=== PATIENT | female | born 1945 | race Caucasian/White ===

== ENCOUNTER 2023-02-02 06:17 | Inpatient (IN) | payer MEDICARE, OTHER ==
[~2023-02-02] VITALS: Ht 167.6 cm; Wt 78.9 kg
[2023-02-02 07:01] LABS: BASOPHILS % (AUTO) 0.4 % (0.0-2.0); EOSINOPHILS # (AUTO) 0.3 K/uL (0.0-0.7); EOSINOPHILS % (AUTO) 3.4 % (0.0-6.0); HEMATOCRIT 36 % (33-45); HEMOGLOBIN 11.8 g/dL (11.5-14.8); LYMPHOCYTES # (AUTO) 1.7 K/uL (0.8-4.8); LYMPHOCYTES % (AUTO) 18.8 % (20.0-44.0); MEAN CORPUSCULAR HEMOGLOBIN 33 PG (26.0-33.0); MEAN CORPUSCULAR HGB CONC 33 g/dl (31.0-36.0); MEAN CORPUSCULAR VOLUME 100 fL (82-100); MONOCYTES # (AUTO) 1.1 K/uL (0.1-1.30); MONOCYTES % (AUTO) 11.7 % (2.0-12.0); NEUTROPHILS # (AUTO) 5.9 K/uL (1.8-8.9); NEUTROPHILS % (AUTO) 65.7 % (43.0-81.0); PLATELET COUNT (AUTO) 188 K/uL (150-450); RED BLOOD CELL COUNT(AUTO) 3.58 MIL/uL (4.0-5.2); RED CELL DISTRIBUTION WIDTH 16.6 % (11.5-15.0)
[2023-02-02 07:15] LABS: CALCIUM, SERUM 10.3 mg/dL (8.5-10.1); CREATININE 1.3 mg/dL (0.6-1.3); POTASSIUM 5.6 mmol/L (3.5-5.1)
[2023-02-02 07:21] LABS: ALBUMIN 3.3 g/dL (3.4-5.0); BILIRUBIN,DIRECT 1.3 mg/dL (0.0-0.2); BILIRUBIN,TOTAL 3.2 mg/dL (0.2-1.0); TOTAL PROTEIN, SERUM 7.3 g/dL (6.4-8.2)
[2023-02-02 07:22] LABS: INR 1.16 (0.91-1.10); PARTIAL THROMBOPLASTIN TIME 24.9 SEC (24.3-34.3); PROTHROMBIN TIME 12.2 SECS (9.2-11.1)
[2023-02-02] MEDS ORDERED: SODIUM POLYSTYRENE SULFONATE 15 G/60 ML BOTTLE PO ONE (08:00)
[2023-02-02] MEDS ORDERED: LACTULOSE 10 G/15 ML UDC (PYXIS) PO ONE (08:00)
[2023-02-02] MEDS ORDERED: SODIUM POLYSTYRENE SULFONATE 15 G/60 ML BOTTLE ONE (08:05)
[2023-02-02] MEDS ORDERED: LACTULOSE 10 G/15 ML UDC (PYXIS) ONE (08:05)
[2023-02-02 08:42] LABS: THYROID STIMULATING HORMONE 2.257 uIU/mL (0.358-3.74)
[2023-02-02] MEDS ORDERED: LISI40TA13 PO (09:47)
[2023-02-02] MEDS ORDERED: FURO-145 PO (09:47)
[2023-02-02] MEDS ORDERED: DOXA2TAB2 PO (09:47)
[2023-02-02] MEDS ORDERED: CHOL100043 PO (09:47)
[2023-02-02] MEDS ORDERED: LACT10SO3 PO (09:47)
[2023-02-02] MEDS ORDERED: ESCI5TAB PO (09:47)
[2023-02-02] MEDS ORDERED: LORA-259 PO (09:47)
[2023-02-02] MEDS ORDERED: SPIR50TA5 PO (09:47)
[2023-02-02] MEDS ORDERED: METF-440 PO (09:47)
[2023-02-02] MEDS ORDERED: LIDO30AD10 TP (09:47)
[2023-02-02] MEDS ORDERED: METO25TA3 PO (09:47)
[2023-02-02] MEDS ORDERED: MAGN100T PO (09:47)
[2023-02-02] MEDS ORDERED: FAMO40TA7 PO (09:47)
[2023-02-02] MEDS ORDERED: INSU100V11 SQ (09:47)
[2023-02-02] MEDS ORDERED: LORA10TA7 PO (09:47)
[2023-02-02] MEDS ORDERED: BUDE10.22 IH (09:47)
[2023-02-02] MEDS ORDERED: MECL-159 PO (09:47)
[2023-02-02] MEDS ORDERED: FERR325T23 PO (09:47)
[2023-02-02] MEDS ORDERED: ACET-2605 PO (09:47)
[2023-02-02] MEDS ORDERED: HYDR25TA4 PO (09:47)
[2023-02-02] MEDS ORDERED: ALLO100T PO (09:47)
[2023-02-02] MEDS ORDERED: SUCR1TAB PO (09:47)
[2023-02-02] MEDS ORDERED: MECLIZINE HCL 25 MG TABLET GT PRN (10:30)
[2023-02-02] MEDS ORDERED: LORATADINE 10 MG TABLET GT PRN (10:30)
[2023-02-02] MEDS ORDERED: ALLOPURINOL 100 MG TABLET GT PRN (10:30)
[2023-02-02] MEDS ORDERED: LIDOCAINE 5% (PATCH) 1 EA PATCH TP PRN (10:30)
[2023-02-02] MEDS ORDERED: Z GUARD REMEDY 4 OZ OINT TP PRN (11:00)
[2023-02-02] MEDS ORDERED: ONDANSETRON HCL/PF 4 MG/2 ML VIAL IVP PRN (11:00)
[2023-02-02 12:35] LABS: APPEARANCE,URINE CLEAR (CLEAR); BILIRUBIN,URINE NEGATIVE (NEGATIVE); BLOOD, URINE NEGATIVE Ery/uL (NEGATIVE); COLOR,URINE YELLOW (YELLOW); KETONES,URINE NEGATIVE (NEGATIVE); LEUKOCYTE ESTERASE ,URINE NEGATIVE (NEGATIVE); NITRITE, URINE POSITIVE (NEGATIVE); PH,URINE 5.5 (5.0-8.0); PROTEIN,URINE NEGATIVE (NEGATIVE); UGLUCOSE NEGATIVE (NEGATIVE); UROBILINOGEN,URINE 0.2 EU/dL (0.2)
[2023-02-02 12:36] LABS: ADD URINE CULTURE YES; BACTERIA,URINE Few /HPF (None Seen); RBC,URINE 0-2 /HPF (0-2); SQUAMOUS EPITHELIAL CELL,UR Rare /HPF (None Seen); WBC,URINE 0-2 /HPF (0-3)
[2023-02-02] MEDS: SUCRALFATE 1 G TABLET GT SCH ×3 (13:00→21:00)
[2023-02-02] MEDS: IV NS 0.9% 1,000 ML IV SCH (15:04)
[2023-02-02 16:18] VITALS: BP 143/74; TEMP 98.1; O2SAT 99
[2023-02-02] MEDS: METFORMIN 500 MG TABLET GT SCH (16:36)
[2023-02-02 20:00] VITALS: BP 159/70; TEMP 98.4; O2SAT 98
[2023-02-02 22:00] VITALS: BP 159/70; TEMP 98.4; O2SAT 98
[2023-02-03] VITALS: BP 140/60; TEMP 98.8; O2SAT 98
[2023-02-03 00:12] VITALS: BP 140/60; TEMP 98.8; O2SAT 98
[2023-02-03 04:00] VITALS: BP 156/78; TEMP 98.4; O2SAT 98
[2023-02-03] MEDS: IV NS 0.9% 1,000 ML IV SCH ×2 (04:20→18:19)
[2023-02-03 06:50] LABS: BASOPHILS % (AUTO) 0.6 % (0.0-2.0); EOSINOPHILS # (AUTO) 0.3 K/uL (0.0-0.7); EOSINOPHILS % (AUTO) 3.6 % (0.0-6.0); HEMATOCRIT 34 % (33-45); HEMOGLOBIN 11.1 g/dL (11.5-14.8); LYMPHOCYTES % (AUTO) 12.3 % (20.0-44.0); MEAN CORPUSCULAR HEMOGLOBIN 33 PG (26.0-33.0); MEAN CORPUSCULAR HGB CONC 33 g/dl (31.0-36.0); MEAN CORPUSCULAR VOLUME 100 fL (82-100); MONOCYTES # (AUTO) 1.1 K/uL (0.1-1.30); MONOCYTES % (AUTO) 14.3 % (2.0-12.0); NEUTROPHILS # (AUTO) 5.4 K/uL (1.8-8.9); NEUTROPHILS % (AUTO) 69.2 % (43.0-81.0); PLATELET COUNT (AUTO) 153 K/uL (150-450); RED BLOOD CELL COUNT(AUTO) 3.35 MIL/uL (4.0-5.2); RED CELL DISTRIBUTION WIDTH 16.1 % (11.5-15.0); WHITE BLOOD COUNT (AUTO) 7.8 K/uL (4.3-11.0)
[2023-02-03 07:14] LABS: ALBUMIN 2.7 g/dL (3.4-5.0); BILIRUBIN,TOTAL 5.4 mg/dL (0.2-1.0); CALCIUM, SERUM 9.1 mg/dL (8.5-10.1); MAGNESIUM 1.5 mg/dL (1.8-2.4); POTASSIUM 4.5 mmol/L (3.5-5.1); TOTAL PROTEIN, SERUM 6.1 g/dL (6.4-8.2)
[2023-02-03 07:30] VITALS: BP 148/61; TEMP 98.2; O2SAT 99
[2023-02-03] MEDS: SUCRALFATE 1 G TABLET GT SCH ×4 (09:00→21:56)
[2023-02-03] MEDS: METOPROLOL SUCCINATE 25 MG TAB.SR.24H GT SCH (09:00)
[2023-02-03] MEDS: DOXAZOSIN MESYLATE (1 MG) 1 MG TABLET GT SCH (09:00)
[2023-02-03] MEDS: CHOLECALCIFEROL 1,000 UNIT TABLET (VIT D3) GT SCH (09:00)
[2023-02-03] MEDS ORDERED: Medication Not On Formulary EA (Lisinopril 40 MG) PO SCH (09:00)
[2023-02-03] MEDS ORDERED: PANTOPRAZOLE 40 MG VIAL IV SCH (09:00)
[2023-02-03] MEDS ORDERED: FUROSEMIDE 20 MG TABLET PO SCH (09:00)
[2023-02-03] MEDS ORDERED: SPIRONOLACTONE 50 MG PO SCH (09:00)
[2023-02-03] MEDS: FAMOTIDINE (20 MG) 20 MG TABLET GT SCH (09:00)
[2023-02-03] MEDS ORDERED: HYDROCHLOROTHIAZIDE 25 MG TABLET PO SCH (09:00)
[2023-02-03] MEDS: METFORMIN 500 MG TABLET GT SCH ×2 (09:00→17:48)
[2023-02-03] MEDS: FERROUS SULFATE (325 MG) 325 MG/TAB TABLET GT SCH (09:00)
[2023-02-03] MEDS: Magnesium 1GM/D5W 100ML PREMIX 100 ML IV SCH ×3 (09:44→13:24)
[2023-02-03 16:24] VITALS: BP 136/57; TEMP 98.1; O2SAT 99
[2023-02-03 20:52] VITALS: BP 134/60; TEMP 98.6; O2SAT 98
[2023-02-04 07:30] VITALS: BP 144/79; TEMP 98.1; O2SAT 99
[2023-02-04] MEDS: IV NS 0.9% 1,000 ML IV SCH (07:44)
[2023-02-04] MEDS: METFORMIN 500 MG TABLET GT SCH ×2 (08:48→17:07)
[2023-02-04] MEDS: CHOLECALCIFEROL 1,000 UNIT TABLET (VIT D3) GT SCH (08:49)
[2023-02-04] MEDS: FAMOTIDINE (20 MG) 20 MG TABLET GT SCH (08:49)
[2023-02-04] MEDS: SUCRALFATE 1 G TABLET GT SCH ×4 (08:49→20:13)
[2023-02-04] MEDS: DOXAZOSIN MESYLATE (1 MG) 1 MG TABLET GT SCH (08:49)
[2023-02-04] MEDS: METOPROLOL SUCCINATE 25 MG TAB.SR.24H GT SCH (08:50)
[2023-02-04] MEDS: FERROUS SULFATE (325 MG) 325 MG/TAB TABLET GT SCH (08:53)
[2023-02-04] MEDS: PANTOPRAZOLE 40 MG/PACK PACK GT SCH (10:30)
[2023-02-04 16:00] VITALS: BP 121/54; TEMP 99.1; O2SAT 98
[2023-02-04] MEDS: ACETAMINOPHEN 650 MG/20.3 ML UDC GT PRN (17:56)
[2023-02-04 20:00] VITALS: BP 95/56; TEMP 98.6; O2SAT 97
[2023-02-04] MEDS: IV NS 0.9% 1,000 ML IV PRN (22:01)
[2023-02-05 07:30] VITALS: BP 130/54; TEMP 97.9; O2SAT 99
[2023-02-05] MEDS: CHOLECALCIFEROL 1,000 UNIT TABLET (VIT D3) GT SCH (09:46)
[2023-02-05] MEDS: PANTOPRAZOLE 40 MG/PACK PACK GT SCH (09:46)
[2023-02-05] MEDS: SUCRALFATE 1 G TABLET GT SCH ×4 (09:46→20:15)
[2023-02-05] MEDS: METOPROLOL SUCCINATE 25 MG TAB.SR.24H GT SCH (09:47)
[2023-02-05] MEDS: FERROUS SULFATE (325 MG) 325 MG/TAB TABLET GT SCH (09:47)
[2023-02-05 09:48] LABS: BASOPHILS % (AUTO) 0.4 % (0.0-2.0); EOSINOPHILS # (AUTO) 0.3 K/uL (0.0-0.7); EOSINOPHILS % (AUTO) 4.3 % (0.0-6.0); HEMATOCRIT 34 % (33-45); HEMOGLOBIN 10.8 g/dL (11.5-14.8); LYMPHOCYTES # (AUTO) 0.8 K/uL (0.8-4.8); LYMPHOCYTES % (AUTO) 10.2 % (20.0-44.0); MEAN CORPUSCULAR HEMOGLOBIN 33 PG (26.0-33.0); MEAN CORPUSCULAR HGB CONC 32 g/dl (31.0-36.0); MEAN CORPUSCULAR VOLUME 103 fL (82-100); MONOCYTES % (AUTO) 12.8 % (2.0-12.0); NEUTROPHILS # (AUTO) 5.6 K/uL (1.8-8.9); NEUTROPHILS % (AUTO) 72.3 % (43.0-81.0); PLATELET COUNT (AUTO) 141 K/uL (150-450); RED BLOOD CELL COUNT(AUTO) 3.29 MIL/uL (4.0-5.2); RED CELL DISTRIBUTION WIDTH 16.1 % (11.5-15.0); WHITE BLOOD COUNT (AUTO) 7.7 K/uL (4.3-11.0)
[2023-02-05] MEDS: DOXAZOSIN MESYLATE (1 MG) 1 MG TABLET GT SCH (09:48)
[2023-02-05] MEDS: FAMOTIDINE (20 MG) 20 MG TABLET GT SCH (09:48)
[2023-02-05] MEDS: METFORMIN 500 MG TABLET GT SCH ×2 (09:48→17:23)
[2023-02-05 10:12] LABS: ALBUMIN 2.5 g/dL (3.4-5.0); BILIRUBIN,TOTAL 3.6 mg/dL (0.2-1.0); CALCIUM, SERUM 8.5 mg/dL (8.5-10.1); CREATININE 1.3 mg/dL (0.6-1.3); MAGNESIUM 1.7 mg/dL (1.8-2.4); PHOSPHORUS 2.3 mg/dL (2.5-4.9); POTASSIUM 4.5 mmol/L (3.5-5.1); TOTAL PROTEIN, SERUM 5.7 g/dL (6.4-8.2)
[2023-02-05 16:00] VITALS: BP 109/50; TEMP 98.2; O2SAT 98
[2023-02-05] MEDS ORDERED: NEUTRA PHOS 1 POWD.PACKET NG ONE (16:00)
[2023-02-05] MEDS: LACTULOSE 10 G/15 ML UDC (PYXIS) PO SCH (17:22)
[2023-02-05] MEDS ORDERED: DEXTROSE 50%-WATER 50 ML DISP.SYRIN IV PRN (18:00)
[2023-02-05] MEDS: GUAIFENESIN/D-METHORPHAN HB 5 ML UDC PO PRN (18:25)
[2023-02-05 20:20] VITALS: BP 112/53; TEMP 97.9; O2SAT 99
[2023-02-05] MEDS: INSULIN REGULAR, HUMAN 100 UNIT/ML 3 ML VIAL SQ PRN (21:31)
[2023-02-05] MEDS: BLOOD SUGAR DIAGNOSTIC 1 EACH STRIP IN SCH (21:32)
[2023-02-05] MEDS: IV NS 0.9% 1,000 ML IV PRN (22:10)
[2023-02-06] MEDS: INSULIN REGULAR, HUMAN 100 UNIT/ML 3 ML VIAL SQ PRN ×3 (06:35→23:21)
[2023-02-06] MEDS: BLOOD SUGAR DIAGNOSTIC 1 EACH STRIP IN SCH ×4 (06:35→22:48)
[2023-02-06] MEDS: FERROUS SULFATE (325 MG) 325 MG/TAB TABLET GT SCH (09:00)
[2023-02-06] MEDS: SULFAMETH/TRIMETH 800/160 MG 1 UDTAB TABLET PO SCH ×2 (09:00→22:48)
[2023-02-06] MEDS: PANTOPRAZOLE 40 MG/PACK PACK GT SCH (09:00)
[2023-02-06] MEDS: DOXAZOSIN MESYLATE (1 MG) 1 MG TABLET GT SCH (09:00)
[2023-02-06] MEDS: LACTULOSE 10 G/15 ML UDC (PYXIS) PO SCH ×3 (09:00→17:44)
[2023-02-06] MEDS: CHOLECALCIFEROL 1,000 UNIT TABLET (VIT D3) GT SCH (09:00)
[2023-02-06] MEDS: RIFAXIMIN 550 MG TABLET PO SCH ×2 (09:00→17:29)
[2023-02-06] MEDS: FAMOTIDINE (20 MG) 20 MG TABLET GT SCH (09:00)
[2023-02-06] MEDS: SUCRALFATE 1 G TABLET GT SCH ×4 (09:00→22:45)
[2023-02-06] MEDS: METOPROLOL SUCCINATE 25 MG TAB.SR.24H GT SCH (09:00)
[2023-02-06] MEDS: GUAIFENESIN/D-METHORPHAN HB 5 ML UDC PO PRN ×2 (11:45→17:29)
[2023-02-06] MEDS: IV NS 0.9% 1,000 ML IV PRN (14:42)
[2023-02-06 18:43] VITALS: BP 121/85; TEMP 98.6; O2SAT 90
[2023-02-06 19:00] VITALS: BP 115/66; TEMP 98.8; O2SAT 94
[2023-02-06 23:44] VITALS: O2SAT 96
[2023-02-06] MEDS: IPRATROPIUM NEB FS 0.5 MG/2.5 ML AMPUL.NEB NEB PRN (23:51)
[2023-02-06] MEDS: ALBUTEROL FS 2.5 MG/0.5 ML VIAL.NEB NEB PRN (23:51)
[2023-02-06 23:59] VITALS: O2SAT 97
[2023-02-07 06:52] LABS: BASOPHILS % (AUTO) 0.3 % (0.0-2.0); EOSINOPHILS # (AUTO) 0.2 K/uL (0.0-0.7); EOSINOPHILS % (AUTO) 1.3 % (0.0-6.0); HEMATOCRIT 30 % (33-45); HEMOGLOBIN 9.8 g/dL (11.5-14.8); LYMPHOCYTES # (AUTO) 0.8 K/uL (0.8-4.8); LYMPHOCYTES % (AUTO) 6.9 % (20.0-44.0); MEAN CORPUSCULAR HEMOGLOBIN 33 PG (26.0-33.0); MEAN CORPUSCULAR HGB CONC 33 g/dl (31.0-36.0); MEAN CORPUSCULAR VOLUME 100 fL (82-100); MONOCYTES # (AUTO) 1.4 K/uL (0.1-1.30); MONOCYTES % (AUTO) 11.8 % (2.0-12.0); NEUTROPHILS # (AUTO) 9.8 K/uL (1.8-8.9); NEUTROPHILS % (AUTO) 79.7 % (43.0-81.0); PLATELET COUNT (AUTO) 151 K/uL (150-450); RED BLOOD CELL COUNT(AUTO) 2.97 MIL/uL (4.0-5.2); RED CELL DISTRIBUTION WIDTH 15.4 % (11.5-15.0); WHITE BLOOD COUNT (AUTO) 12.3 K/uL (4.3-11.0)
[2023-02-07 07:14] LABS: CALCIUM, SERUM 8.3 mg/dL (8.5-10.1); CREATININE 1.2 mg/dL (0.6-1.3); POTASSIUM 4.9 mmol/L (3.5-5.1)
[2023-02-07 07:21] LABS: ALBUMIN 2.4 g/dL (3.4-5.0); BILIRUBIN,TOTAL 3.5 mg/dL (0.2-1.0); TOTAL PROTEIN, SERUM 5.6 g/dL (6.4-8.2)
[2023-02-07 08:00] VITALS: BP 144/56; TEMP 97.3; O2SAT 99
[2023-02-07] MEDS: BLOOD SUGAR DIAGNOSTIC 1 EACH STRIP IN SCH ×4 (08:36→22:03)
[2023-02-07] MEDS: LACTULOSE 10 G/15 ML UDC (PYXIS) PO SCH ×2 (09:00→16:30)
[2023-02-07] MEDS: SULFAMETH/TRIMETH 800/160 MG 1 UDTAB TABLET PO SCH ×2 (09:01→21:28)
[2023-02-07] MEDS: FERROUS SULFATE (325 MG) 325 MG/TAB TABLET GT SCH (09:01)
[2023-02-07] MEDS: SUCRALFATE 1 G TABLET GT SCH ×4 (09:01→21:28)
[2023-02-07] MEDS: CHOLECALCIFEROL 1,000 UNIT TABLET (VIT D3) GT SCH (09:01)
[2023-02-07] MEDS: PANTOPRAZOLE 40 MG/PACK PACK GT SCH (09:02)
[2023-02-07] MEDS: DOXAZOSIN MESYLATE (1 MG) 1 MG TABLET GT SCH (09:02)
[2023-02-07] MEDS: RIFAXIMIN 550 MG TABLET PO SCH ×2 (09:02→16:30)
[2023-02-07] MEDS: FAMOTIDINE (20 MG) 20 MG TABLET GT SCH (09:03)
[2023-02-07] MEDS: METOPROLOL SUCCINATE 25 MG TAB.SR.24H GT SCH (09:03)
[2023-02-07] MEDS: INSULIN REGULAR, HUMAN 100 UNIT/ML 3 ML VIAL SQ PRN ×4 (09:08→21:49)
[2023-02-07] MEDS ORDERED: LEVOFLOXACIN (250MG) 250 MG TABLET PO SCH (12:00)
[2023-02-07] MEDS ORDERED: FUROSEMIDE 40 MG/4 ML VIAL IV SCH (15:30)
[2023-02-07 16:00] VITALS: BP 116/58; TEMP 97.9; O2SAT 97
[2023-02-07] MEDS ORDERED: HYDROCODONE/APAP 5/325MG TABLET PO PRN (16:30)
[2023-02-07] MEDS: ACETAMINOPHEN 650 MG/20.3 ML UDC GT PRN (16:30)
[2023-02-07 18:10] LABS: BASOPHILS % (AUTO) 0.3 % (0.0-2.0); EOSINOPHILS # (AUTO) 0.2 K/uL (0.0-0.7); EOSINOPHILS % (AUTO) 1.7 % (0.0-6.0); HEMATOCRIT 29 % (33-45); HEMOGLOBIN 9.6 g/dL (11.5-14.8); LYMPHOCYTES # (AUTO) 0.8 K/uL (0.8-4.8); LYMPHOCYTES % (AUTO) 7.1 % (20.0-44.0); MEAN CORPUSCULAR HEMOGLOBIN 33 PG (26.0-33.0); MEAN CORPUSCULAR HGB CONC 33 g/dl (31.0-36.0); MEAN CORPUSCULAR VOLUME 99 fL (82-100); MONOCYTES # (AUTO) 1.9 K/uL (0.1-1.30); MONOCYTES % (AUTO) 15.5 % (2.0-12.0); NEUTROPHILS % (AUTO) 75.4 % (43.0-81.0); PLATELET COUNT (AUTO) 137 K/uL (150-450); RED BLOOD CELL COUNT(AUTO) 2.97 MIL/uL (4.0-5.2); RED CELL DISTRIBUTION WIDTH 15.7 % (11.5-15.0)
[2023-02-07 18:53] LABS: ALANINE AMINOTRANSFERASE 25 U/L (12-78); ALBUMIN 2.4 g/dL (3.4-5.0); ALKALINE PHOSPHATASE 55 U/L (46-116); ASPARTATE AMINOTRANSFERASE 32 U/L (15-37); BILIRUBIN,TOTAL 2.9 mg/dL (0.2-1.0); CALCIUM, SERUM 8.4 mg/dL (8.5-10.1); CARBON DIOXIDE 15 mmol/L (21-32); CHLORIDE 106 mmol/L (98-107); CREATININE 1.5 mg/dL (0.6-1.3); GLUCOSE 209 mg/dL (74-106); POTASSIUM 4.6 mmol/L (3.5-5.1); SODIUM SERUM 131 mmol/L (136-145); TOTAL PROTEIN, SERUM 5.6 g/dL (6.4-8.2); UREA NITROGEN, BLOOD 23 mg/dL (7-18)
[2023-02-07 20:00] VITALS: BP 112/56; TEMP 98.8; O2SAT 97
[2023-02-08 02:31] LABS: ANISOCYTOSIS 1+; BASOPHILS % (MANUAL) 0 % (0.0-2.0); EOSINOPHILS % (MANUAL) 0 % (0-4); LYMPHOCYTES % (MANUAL) 9 % (16-48); MONOCYTES % (MANUAL) 12 % (0-11.0); NEUTROPHILS % (MANUAL) 78 (42-76); PLATELET ESTIMATE ADEQUATE
[2023-02-08] MEDS: IV NS 0.9% 1,000 ML IV PRN (05:33)
[2023-02-08] MEDS: IPRATROPIUM NEB FS 0.5 MG/2.5 ML AMPUL.NEB NEB PRN (05:58)
[2023-02-08 05:59] VITALS: O2SAT 98
[2023-02-08] MEDS: ALBUTEROL FS 2.5 MG/0.5 ML VIAL.NEB NEB PRN (05:59)
[2023-02-08 06:13] VITALS: O2SAT 100
[2023-02-08] MEDS: INSULIN REGULAR, HUMAN 100 UNIT/ML 3 ML VIAL SQ PRN ×4 (06:56→21:31)
[2023-02-08] MEDS: BLOOD SUGAR DIAGNOSTIC 1 EACH STRIP IN SCH ×4 (06:57→21:26)
[2023-02-08 07:30] VITALS: BP 118/66; TEMP 98.1; O2SAT 100
[2023-02-08 09:16] LABS: BASOPHILS # (AUTO) 0.1 K/uL (0.0-0.2); BASOPHILS % (AUTO) 0.6 % (0.0-2.0); EOSINOPHILS # (AUTO) 0.3 K/uL (0.0-0.7); EOSINOPHILS % (AUTO) 3.2 % (0.0-6.0); HEMATOCRIT 32 % (33-45); HEMOGLOBIN 10.6 g/dL (11.5-14.8); LYMPHOCYTES # (AUTO) 1.2 K/uL (0.8-4.8); LYMPHOCYTES % (AUTO) 11.8 % (20.0-44.0); MEAN CORPUSCULAR HEMOGLOBIN 34 PG (26.0-33.0); MEAN CORPUSCULAR HGB CONC 33 g/dl (31.0-36.0); MEAN CORPUSCULAR VOLUME 101 fL (82-100); MONOCYTES # (AUTO) 1.5 K/uL (0.1-1.30); MONOCYTES % (AUTO) 14.5 % (2.0-12.0); NEUTROPHILS % (AUTO) 69.9 % (43.0-81.0); PLATELET COUNT (AUTO) 143 K/uL (150-450); RED BLOOD CELL COUNT(AUTO) 3.18 MIL/uL (4.0-5.2); RED CELL DISTRIBUTION WIDTH 16.1 % (11.5-15.0)
[2023-02-08 09:19] LABS: SERUM AMMONIA 12 umol/L (11-32)
[2023-02-08] MEDS: PANTOPRAZOLE 40 MG/PACK PACK GT SCH (09:29)
[2023-02-08] MEDS: SULFAMETH/TRIMETH 800/160 MG 1 UDTAB TABLET PO SCH ×2 (09:29→21:16)
[2023-02-08] MEDS: FAMOTIDINE (20 MG) 20 MG TABLET GT SCH (09:29)
[2023-02-08] MEDS: CHOLECALCIFEROL 1,000 UNIT TABLET (VIT D3) GT SCH (09:30)
[2023-02-08] MEDS: METOPROLOL SUCCINATE 25 MG TAB.SR.24H GT SCH (09:30)
[2023-02-08] MEDS: DOXAZOSIN MESYLATE (1 MG) 1 MG TABLET GT SCH (09:30)
[2023-02-08] MEDS: FERROUS SULFATE (325 MG) 325 MG/TAB TABLET GT SCH (09:31)
[2023-02-08] MEDS: RIFAXIMIN 550 MG TABLET PO SCH ×2 (09:31→16:43)
[2023-02-08] MEDS: SUCRALFATE 1 G TABLET GT SCH ×4 (09:31→21:15)
[2023-02-08 09:41] LABS: ALANINE AMINOTRANSFERASE 24 U/L (12-78); ALBUMIN 2.4 g/dL (3.4-5.0); ALKALINE PHOSPHATASE 51 U/L (46-116); ASPARTATE AMINOTRANSFERASE 33 U/L (15-37); CALCIUM, SERUM 8.3 mg/dL (8.5-10.1); CARBON DIOXIDE 16 mmol/L (21-32); CHLORIDE 106 mmol/L (98-107); CREATININE 1.4 mg/dL (0.6-1.3); GLUCOSE 174 mg/dL (74-106); POTASSIUM 4.6 mmol/L (3.5-5.1); SODIUM SERUM 132 mmol/L (136-145); TOTAL PROTEIN, SERUM 5.8 g/dL (6.4-8.2); UREA NITROGEN, BLOOD 23 mg/dL (7-18)
[2023-02-08] MEDS: LACTULOSE 10 G/15 ML UDC (PYXIS) PO SCH ×2 (10:13→16:42)
[2023-02-08] MEDS: FUROSEMIDE 40 MG/4 ML VIAL IV SCH (11:13)
[2023-02-08 16:07] VITALS: BP 112/52; TEMP 97.9; O2SAT 100
[2023-02-08 16:36] LABS: APPEARANCE,SPUN,BODY FLUID CLEAR (CLEAR); TOTAL VOLUME,BODY FLUID 1000 mL; WBC, BODY FLUID 496 /cu. mm. (0-200)
[2023-02-08 17:21] LABS: MACROPHAGES, BODY FLUID 13; MONOCYTES,BODY FLUID 5 %; POLYNUCLEAR, BODY FLUID 23 % (0-25)
[2023-02-08 19:30] VITALS: BP 118/60; TEMP 98.2; O2SAT 99
[2023-02-09] MEDS: BLOOD SUGAR DIAGNOSTIC 1 EACH STRIP IN SCH ×4 (06:49→22:38)
[2023-02-09] MEDS: INSULIN REGULAR, HUMAN 100 UNIT/ML 3 ML VIAL SQ PRN ×4 (07:00→23:13)
[2023-02-09 07:07] LABS: SERUM AMMONIA 40 umol/L (11-32)
[2023-02-09 08:10] LABS: ALANINE AMINOTRANSFERASE 20 U/L (12-78); ALKALINE PHOSPHATASE 44 U/L (46-116); ASPARTATE AMINOTRANSFERASE 34 U/L (15-37); BILIRUBIN,TOTAL 1.6 mg/dL (0.2-1.0); CALCIUM, SERUM 8.2 mg/dL (8.5-10.1); CARBON DIOXIDE 17 mmol/L (21-32); CHLORIDE 100 mmol/L (98-107); CREATININE 1.4 mg/dL (0.6-1.3); GLUCOSE 175 mg/dL (74-106); POTASSIUM 4.7 mmol/L (3.5-5.1); SODIUM SERUM 125 mmol/L (136-145); UREA NITROGEN, BLOOD 21 mg/dL (7-18)
[2023-02-09] MEDS: LACTULOSE 10 G/15 ML UDC (PYXIS) PO SCH ×2 (08:12→16:34)
[2023-02-09] MEDS: SULFAMETH/TRIMETH 800/160 MG 1 UDTAB TABLET PO SCH ×2 (08:12→22:38)
[2023-02-09] MEDS: PANTOPRAZOLE 40 MG/PACK PACK GT SCH (08:12)
[2023-02-09] MEDS: SUCRALFATE 1 G TABLET GT SCH ×4 (08:12→22:37)
[2023-02-09] MEDS: FAMOTIDINE (20 MG) 20 MG TABLET GT SCH (08:13)
[2023-02-09] MEDS: FERROUS SULFATE (325 MG) 325 MG/TAB TABLET GT SCH (08:13)
[2023-02-09] MEDS: CHOLECALCIFEROL 1,000 UNIT TABLET (VIT D3) GT SCH (08:13)
[2023-02-09] MEDS: RIFAXIMIN 550 MG TABLET PO SCH ×2 (08:13→16:34)
[2023-02-09] MEDS: METOPROLOL SUCCINATE 25 MG TAB.SR.24H GT SCH (08:18)
[2023-02-09] MEDS: DOXAZOSIN MESYLATE (1 MG) 1 MG TABLET GT SCH (08:19)
[2023-02-09] MEDS: FUROSEMIDE 40 MG/4 ML VIAL IV SCH (08:19)
[2023-02-09 08:30] VITALS: BP 120/50; TEMP 97.7; O2SAT 99
[2023-02-09] MEDS: ALBUMIN 25% 25 GM in PREMIX 1 EA IV SCH ×2 (10:47→17:22)
[2023-02-09 11:25] LABS: BASOPHILS # (AUTO) 0.1 K/uL (0.0-0.2); BASOPHILS % (AUTO) 0.9 % (0.0-2.0); EOSINOPHILS # (AUTO) 0.3 K/uL (0.0-0.7); HEMATOCRIT 29 % (33-45); HEMOGLOBIN 9.9 g/dL (11.5-14.8); LYMPHOCYTES # (AUTO) 0.7 K/uL (0.8-4.8); LYMPHOCYTES % (AUTO) 10.2 % (20.0-44.0); MEAN CORPUSCULAR HEMOGLOBIN 33 PG (26.0-33.0); MEAN CORPUSCULAR HGB CONC 34 g/dl (31.0-36.0); MEAN CORPUSCULAR VOLUME 98 fL (82-100); MONOCYTES # (AUTO) 0.9 K/uL (0.1-1.30); MONOCYTES % (AUTO) 12.9 % (2.0-12.0); NEUTROPHILS # (AUTO) 5.1 K/uL (1.8-8.9); PLATELET COUNT (AUTO) 131 K/uL (150-450); RED BLOOD CELL COUNT(AUTO) 2.99 MIL/uL (4.0-5.2); RED CELL DISTRIBUTION WIDTH 15.6 % (11.5-15.0); WHITE BLOOD COUNT (AUTO) 7.1 K/uL (4.3-11.0)
[2023-02-09 11:36] LABS: ALANINE AMINOTRANSFERASE 20 U/L (12-78); ALKALINE PHOSPHATASE 48 U/L (46-116); ASPARTATE AMINOTRANSFERASE 28 U/L (15-37); BILIRUBIN,TOTAL 1.7 mg/dL (0.2-1.0); CARBON DIOXIDE 17 mmol/L (21-32); CHLORIDE 100 mmol/L (98-107); CREATININE 1.6 mg/dL (0.6-1.3); GLUCOSE 363 mg/dL (74-106); POTASSIUM 4.2 mmol/L (3.5-5.1); SODIUM SERUM 124 mmol/L (136-145); TOTAL PROTEIN, SERUM 4.9 g/dL (6.4-8.2); UREA NITROGEN, BLOOD 22 mg/dL (7-18)
[2023-02-09 16:00] VITALS: BP 113/97; TEMP 97.6; O2SAT 100
[2023-02-09 18:43] LABS: CALCIUM, SERUM 8.3 mg/dL (8.5-10.1); CARBON DIOXIDE 17 mmol/L (21-32); CHLORIDE 101 mmol/L (98-107); CREATININE 1.6 mg/dL (0.6-1.3); GLUCOSE 253 mg/dL (74-106); POTASSIUM 4.5 mmol/L (3.5-5.1); SODIUM SERUM 126 mmol/L (136-145); UREA NITROGEN, BLOOD 23 mg/dL (7-18)
[2023-02-09 19:10] LABS: APPEARANCE,URINE CLEAR (CLEAR); BILIRUBIN,URINE NEGATIVE (NEGATIVE); BLOOD, URINE NEGATIVE Ery/uL (NEGATIVE); COLOR,URINE YELLOW (YELLOW); KETONES,URINE NEGATIVE (NEGATIVE); LEUKOCYTE ESTERASE ,URINE NEGATIVE (NEGATIVE); NITRITE, URINE NEGATIVE (NEGATIVE); PH,URINE 5.5 (5.0-8.0); PROTEIN,URINE NEGATIVE (NEGATIVE); UGLUCOSE TRACE mg/dL (NEGATIVE); UROBILINOGEN,URINE 0.2 EU/dL (0.2)
[2023-02-09 20:00] VITALS: BP 104/47; TEMP 97.9; O2SAT 97
[2023-02-09 22:20] LABS: EOSINOPHIL,URINE None Seen
[2023-02-10] MEDS: ALBUMIN 25% 25 GM in PREMIX 1 EA IV SCH ×3 (03:25→21:41)
[2023-02-10 03:42] LABS: URINE TOTAL PROTEIN 8.4 mg/dL (0-11.9)
[2023-02-10] MEDS: BLOOD SUGAR DIAGNOSTIC 1 EACH STRIP IN SCH ×4 (07:45→21:32)
[2023-02-10] MEDS: INSULIN REGULAR, HUMAN 100 UNIT/ML 3 ML VIAL SQ PRN ×4 (07:46→21:56)
[2023-02-10 08:00] VITALS: BP 110/45; TEMP 98.1; O2SAT 100
[2023-02-10] MEDS: LACTULOSE 10 G/15 ML UDC (PYXIS) PO SCH ×2 (09:33→17:10)
[2023-02-10] MEDS: DOXAZOSIN MESYLATE (1 MG) 1 MG TABLET GT SCH (09:33)
[2023-02-10] MEDS: CHOLECALCIFEROL 1,000 UNIT TABLET (VIT D3) GT SCH (09:33)
[2023-02-10] MEDS: SULFAMETH/TRIMETH 800/160 MG 1 UDTAB TABLET PO SCH ×2 (09:33→21:32)
[2023-02-10] MEDS: RIFAXIMIN 550 MG TABLET PO SCH ×2 (09:34→17:10)
[2023-02-10] MEDS: SUCRALFATE 1 G TABLET GT SCH ×4 (09:34→21:32)
[2023-02-10] MEDS: PANTOPRAZOLE 40 MG/PACK PACK GT SCH (09:34)
[2023-02-10] MEDS: FAMOTIDINE (20 MG) 20 MG TABLET GT SCH (09:34)
[2023-02-10] MEDS: FERROUS SULFATE (325 MG) 325 MG/TAB TABLET GT SCH (09:35)
[2023-02-10] MEDS: METOPROLOL SUCCINATE 25 MG TAB.SR.24H GT SCH (09:35)
[2023-02-10 11:09] LABS: SERUM AMMONIA 49 umol/L (11-32)
[2023-02-10 11:13] LABS: ALANINE AMINOTRANSFERASE 22 U/L (12-78); ALKALINE PHOSPHATASE 53 U/L (46-116); ASPARTATE AMINOTRANSFERASE 29 U/L (15-37); BILIRUBIN,TOTAL 1.6 mg/dL (0.2-1.0); CALCIUM, SERUM 8.2 mg/dL (8.5-10.1); CARBON DIOXIDE 13 mmol/L (21-32); CHLORIDE 101 mmol/L (98-107); CREATININE 1.5 mg/dL (0.6-1.3); GLUCOSE 262 mg/dL (74-106); POTASSIUM 4.7 mmol/L (3.5-5.1); SODIUM SERUM 122 mmol/L (136-145); TOTAL PROTEIN, SERUM 5.3 g/dL (6.4-8.2); UREA NITROGEN, BLOOD 24 mg/dL (7-18)
[2023-02-10 11:21] LABS: BASOPHILS % (AUTO) 0.4 % (0.0-2.0); EOSINOPHILS # (AUTO) 0.2 K/uL (0.0-0.7); EOSINOPHILS % (AUTO) 4.3 % (0.0-6.0); HEMATOCRIT 29 % (33-45); HEMOGLOBIN 9.2 g/dL (11.5-14.8); LYMPHOCYTES # (AUTO) 0.5 K/uL (0.8-4.8); LYMPHOCYTES % (AUTO) 12.5 % (20.0-44.0); MEAN CORPUSCULAR HEMOGLOBIN 35 PG (26.0-33.0); MEAN CORPUSCULAR HGB CONC 32 g/dl (31.0-36.0); MEAN CORPUSCULAR VOLUME 109 fL (82-100); MONOCYTES # (AUTO) 0.6 K/uL (0.1-1.30); MONOCYTES % (AUTO) 13.4 % (2.0-12.0); NEUTROPHILS # (AUTO) 2.9 K/uL (1.8-8.9); NEUTROPHILS % (AUTO) 69.4 % (43.0-81.0); RED BLOOD CELL COUNT(AUTO) 2.63 MIL/uL (4.0-5.2); RED CELL DISTRIBUTION WIDTH 17.4 % (11.5-15.0); WHITE BLOOD COUNT (AUTO) 4.2 K/uL (4.3-11.0)
[2023-02-10 11:33] LABS: PLATELET COUNT (AUTO) 30 K/uL (150-450)
[2023-02-10] MEDS ORDERED: ALBUTEROL FS 2.5 MG/0.5 ML VIAL.NEB NEB PRN (13:00)
[2023-02-10 16:00] VITALS: BP 117/45; TEMP 99; O2SAT 100
[2023-02-10 17:10] LABS: EOSINOPHILS % (MANUAL) 3 % (0-4); LYMPHOCYTES % (MANUAL) 12 % (16-48); MONOCYTES % (MANUAL) 22 % (0-11.0); NEUTROPHILS % (MANUAL) 63 (42-76); PLATELET ESTIMATE DECREASED
[2023-02-10 17:17] LABS: ALBUMIN 2.6 g/dL (3.4-5.0)
[2023-02-10] MEDS ORDERED: IPRATROPIUM/ALBUTEROL INHALER IH SCH (18:00)
[2023-02-10 19:34] VITALS: O2SAT 97
[2023-02-10] MEDS: IPRATROPIUM NEB FS 0.5 MG/2.5 ML AMPUL.NEB NEB SCH (19:34)
[2023-02-10] MEDS: ALBUTEROL FS 2.5 MG/0.5 ML VIAL.NEB NEB SCH (19:34)
[2023-02-10 19:44] VITALS: O2SAT 100
[2023-02-10 20:00] VITALS: BP 108/47; TEMP 98.1; O2SAT 100
[2023-02-11] VITALS (11 sets, daily range): BP systolic 99–115; BP diastolic 45–56; TEMP 98.1–98.8; O2SAT 96–100
[2023-02-11] MEDS: ALBUTEROL FS 2.5 MG/0.5 ML VIAL.NEB NEB SCH ×4 (02:25→19:45)
[2023-02-11] MEDS: IPRATROPIUM NEB FS 0.5 MG/2.5 ML AMPUL.NEB NEB SCH ×4 (02:25→19:45)
[2023-02-11] MEDS: ALBUMIN 25% 25 GM in PREMIX 1 EA IV SCH (06:12)
[2023-02-11] MEDS: INSULIN REGULAR, HUMAN 100 UNIT/ML 3 ML VIAL SQ PRN ×4 (06:50→22:17)
[2023-02-11] MEDS: BLOOD SUGAR DIAGNOSTIC 1 EACH STRIP IN SCH ×4 (06:50→22:14)
[2023-02-11 07:21] LABS: BASOPHILS % (AUTO) 0.5 % (0.0-2.0); EOSINOPHILS # (AUTO) 0.2 K/uL (0.0-0.7); EOSINOPHILS % (AUTO) 3.6 % (0.0-6.0); HEMATOCRIT 25 % (33-45); HEMOGLOBIN 8.3 g/dL (11.5-14.8); LYMPHOCYTES # (AUTO) 0.8 K/uL (0.8-4.8); MEAN CORPUSCULAR HEMOGLOBIN 33 PG (26.0-33.0); MEAN CORPUSCULAR HGB CONC 34 g/dl (31.0-36.0); MEAN CORPUSCULAR VOLUME 99 fL (82-100); MONOCYTES # (AUTO) 1.2 K/uL (0.1-1.30); MONOCYTES % (AUTO) 16.8 % (2.0-12.0); NEUTROPHILS # (AUTO) 4.6 K/uL (1.8-8.9); NEUTROPHILS % (AUTO) 67.1 % (43.0-81.0); PLATELET COUNT (AUTO) 117 K/uL (150-450); RED CELL DISTRIBUTION WIDTH 15.5 % (11.5-15.0); WHITE BLOOD COUNT (AUTO) 6.9 K/uL (4.3-11.0)
[2023-02-11 07:29] LABS: SERUM AMMONIA 53 umol/L (11-32)
[2023-02-11 07:33] LABS: ALANINE AMINOTRANSFERASE 14 U/L (12-78); ALBUMIN 3.1 g/dL (3.4-5.0); ALKALINE PHOSPHATASE 44 U/L (46-116); ASPARTATE AMINOTRANSFERASE 26 U/L (15-37); BILIRUBIN,TOTAL 1.8 mg/dL (0.2-1.0); CALCIUM, SERUM 8.4 mg/dL (8.5-10.1); CARBON DIOXIDE 17 mmol/L (21-32); CHLORIDE 101 mmol/L (98-107); CREATININE 1.7 mg/dL (0.6-1.3); GLUCOSE 150 mg/dL (74-106); POTASSIUM 4.3 mmol/L (3.5-5.1); SODIUM SERUM 127 mmol/L (136-145); TOTAL PROTEIN, SERUM 5.2 g/dL (6.4-8.2); UREA NITROGEN, BLOOD 27 mg/dL (7-18)
[2023-02-11 09:26] LABS: ABG OXYGEN SATURATION 97.6 % (92.0-98.5); ABG PH 7.397 (7.350-7.450); ABG PO2 108.5 mmHg (75.0-100.0); ABG TOTAL HEMOGLOBIN 9.7 G/dL (12.0-16.0); AaDO2 60.5 mmHg; COHb 0.3 % (0.5-1.5); MetHb 0.2 % (0.0-1.5); O2Hb 97.1 % (94.0-97.0); SITE, ABG Right Radial; VENT MODE, BG N/C @ 28 FiO2
[2023-02-11] MEDS: FAMOTIDINE (20 MG) 20 MG TABLET GT SCH (09:33)
[2023-02-11] MEDS: PANTOPRAZOLE 40 MG/PACK PACK GT SCH (09:33)
[2023-02-11] MEDS: LACTULOSE 10 G/15 ML UDC (PYXIS) PO SCH ×2 (09:33→16:58)
[2023-02-11] MEDS: FERROUS SULFATE (325 MG) 325 MG/TAB TABLET GT SCH (09:33)
[2023-02-11] MEDS: RIFAXIMIN 550 MG TABLET PO SCH ×2 (09:33→16:59)
[2023-02-11] MEDS: SULFAMETH/TRIMETH 800/160 MG 1 UDTAB TABLET PO SCH ×2 (09:34→21:09)
[2023-02-11] MEDS: METOPROLOL SUCCINATE 25 MG TAB.SR.24H GT SCH (09:34)
[2023-02-11] MEDS: SUCRALFATE 1 G TABLET GT SCH ×4 (09:34→21:09)
[2023-02-11] MEDS: CHOLECALCIFEROL 1,000 UNIT TABLET (VIT D3) GT SCH (09:34)
[2023-02-11] MEDS: DOXAZOSIN MESYLATE (1 MG) 1 MG TABLET GT SCH (09:35)
[2023-02-11] MEDS: methylPREDNISolone SOD SUCC 40 MG/ML VIAL IV SCH ×2 (11:13→16:58)
[2023-02-12] VITALS (9 sets, daily range): BP systolic 95–135; BP diastolic 46–64; TEMP 97.7–98.6; O2SAT 96–99
[2023-02-12] MEDS: ALBUTEROL FS 2.5 MG/0.5 ML VIAL.NEB NEB SCH ×4 (01:41→19:50)
[2023-02-12] MEDS: IPRATROPIUM NEB FS 0.5 MG/2.5 ML AMPUL.NEB NEB SCH ×4 (01:41→19:50)
[2023-02-12] MEDS: BLOOD SUGAR DIAGNOSTIC 1 EACH STRIP IN SCH ×4 (06:04→22:53)
[2023-02-12] MEDS: INSULIN REGULAR, HUMAN 100 UNIT/ML 3 ML VIAL SQ PRN ×4 (06:06→23:00)
[2023-02-12] MEDS: GUAIFENESIN/D-METHORPHAN HB 5 ML UDC PO PRN (06:10)
[2023-02-12 07:31] LABS: BASOPHILS % (AUTO) 0.1 % (0.0-2.0); EOSINOPHILS % (AUTO) 0.1 % (0.0-6.0); HEMATOCRIT 27 % (33-45); HEMOGLOBIN 9.2 g/dL (11.5-14.8); LYMPHOCYTES # (AUTO) 0.4 K/uL (0.8-4.8); LYMPHOCYTES % (AUTO) 3.8 % (20.0-44.0); MEAN CORPUSCULAR HEMOGLOBIN 34 PG (26.0-33.0); MEAN CORPUSCULAR HGB CONC 34 g/dl (31.0-36.0); MEAN CORPUSCULAR VOLUME 99 fL (82-100); MONOCYTES # (AUTO) 0.6 K/uL (0.1-1.30); MONOCYTES % (AUTO) 5.2 % (2.0-12.0); NEUTROPHILS # (AUTO) 10.4 K/uL (1.8-8.9); NEUTROPHILS % (AUTO) 90.8 % (43.0-81.0); PLATELET COUNT (AUTO) 127 K/uL (150-450); RED BLOOD CELL COUNT(AUTO) 2.73 MIL/uL (4.0-5.2); RED CELL DISTRIBUTION WIDTH 15.7 % (11.5-15.0); WHITE BLOOD COUNT (AUTO) 11.5 K/uL (4.3-11.0)
[2023-02-12 07:33] LABS: INR 1.43 (0.91-1.10); PARTIAL THROMBOPLASTIN TIME 30.3 SEC (24.3-34.3); PROTHROMBIN TIME 14.8 SECS (9.2-11.1)
[2023-02-12 07:49] LABS: ALANINE AMINOTRANSFERASE 22 U/L (12-78); ALBUMIN 3.5 g/dL (3.4-5.0); ALKALINE PHOSPHATASE 43 U/L (46-116); ASPARTATE AMINOTRANSFERASE 26 U/L (15-37); BILIRUBIN,TOTAL 1.8 mg/dL (0.2-1.0); CALCIUM, SERUM 8.8 mg/dL (8.5-10.1); CARBON DIOXIDE 14 mmol/L (21-32); CHLORIDE 99 mmol/L (98-107); CREATININE 2.1 mg/dL (0.6-1.3); GLUCOSE 326 mg/dL (74-106); POTASSIUM 4.9 mmol/L (3.5-5.1); SODIUM SERUM 125 mmol/L (136-145); TOTAL PROTEIN, SERUM 6.1 g/dL (6.4-8.2); UREA NITROGEN, BLOOD 38 mg/dL (7-18)
[2023-02-12] MEDS: FAMOTIDINE (20 MG) 20 MG TABLET GT SCH (09:20)
[2023-02-12] MEDS: METOPROLOL SUCCINATE 25 MG TAB.SR.24H GT SCH (09:20)
[2023-02-12] MEDS: LACTULOSE 10 G/15 ML UDC (PYXIS) PO SCH ×2 (09:20→17:21)
[2023-02-12] MEDS: RIFAXIMIN 550 MG TABLET PO SCH ×2 (09:20→17:21)
[2023-02-12] MEDS: CHOLECALCIFEROL 1,000 UNIT TABLET (VIT D3) GT SCH (09:21)
[2023-02-12] MEDS: SUCRALFATE 1 G TABLET GT SCH ×4 (09:21→21:34)
[2023-02-12] MEDS: SULFAMETH/TRIMETH 800/160 MG 1 UDTAB TABLET PO SCH ×2 (09:21→21:34)
[2023-02-12] MEDS: FERROUS SULFATE (325 MG) 325 MG/TAB TABLET GT SCH (09:21)
[2023-02-12] MEDS: PANTOPRAZOLE 40 MG/PACK PACK GT SCH (09:21)
[2023-02-12] MEDS: DOXAZOSIN MESYLATE (1 MG) 1 MG TABLET GT SCH (09:27)
[2023-02-12] MEDS: methylPREDNISolone SOD SUCC 40 MG/ML VIAL IV SCH ×2 (10:26→17:57)
[2023-02-12 16:19] LABS: TOTAL PROTEIN,PLEURAL FLUID 1.31
[2023-02-13] VITALS (11 sets, daily range): BP systolic 105–120; BP diastolic 48–67; TEMP 97.3–98.6; O2SAT 95–99
[2023-02-13] MEDS: IPRATROPIUM NEB FS 0.5 MG/2.5 ML AMPUL.NEB NEB SCH ×4 (01:26→19:38)
[2023-02-13] MEDS: ALBUTEROL FS 2.5 MG/0.5 ML VIAL.NEB NEB SCH ×4 (01:26→19:38)
[2023-02-13] MEDS: BLOOD SUGAR DIAGNOSTIC 1 EACH STRIP IN SCH ×4 (06:50→22:41)
[2023-02-13] MEDS: INSULIN REGULAR, HUMAN 100 UNIT/ML 3 ML VIAL SQ PRN ×4 (06:50→22:47)
[2023-02-13 07:41] LABS: BASOPHILS % (AUTO) 0.2 % (0.0-2.0); EOSINOPHILS % (AUTO) 0.2 % (0.0-6.0); HEMATOCRIT 28 % (33-45); LYMPHOCYTES # (AUTO) 0.7 K/uL (0.8-4.8); LYMPHOCYTES % (AUTO) 3.9 % (20.0-44.0); MEAN CORPUSCULAR HEMOGLOBIN 33 PG (26.0-33.0); MEAN CORPUSCULAR HGB CONC 32 g/dl (31.0-36.0); MEAN CORPUSCULAR VOLUME 102 fL (82-100); MONOCYTES # (AUTO) 1.1 K/uL (0.1-1.30); MONOCYTES % (AUTO) 6.5 % (2.0-12.0); NEUTROPHILS # (AUTO) 15.8 K/uL (1.8-8.9); NEUTROPHILS % (AUTO) 89.2 % (43.0-81.0); PLATELET COUNT (AUTO) 184 K/uL (150-450); RED BLOOD CELL COUNT(AUTO) 2.75 MIL/uL (4.0-5.2); RED CELL DISTRIBUTION WIDTH 16.5 % (11.5-15.0); WHITE BLOOD COUNT (AUTO) 17.7 K/uL (4.3-11.0)
[2023-02-13 07:44] LABS: ALANINE AMINOTRANSFERASE 24 U/L (12-78); ALBUMIN 3.7 g/dL (3.4-5.0); ALKALINE PHOSPHATASE 48 U/L (46-116); ASPARTATE AMINOTRANSFERASE 27 U/L (15-37); BILIRUBIN,TOTAL 1.4 mg/dL (0.2-1.0); CALCIUM, SERUM 9.1 mg/dL (8.5-10.1); CARBON DIOXIDE 15 mmol/L (21-32); CHLORIDE 99 mmol/L (98-107); CREATININE 2.6 mg/dL (0.6-1.3); GLUCOSE 279 mg/dL (74-106); POTASSIUM 4.8 mmol/L (3.5-5.1); SODIUM SERUM 126 mmol/L (136-145); TOTAL PROTEIN, SERUM 6.4 g/dL (6.4-8.2); UREA NITROGEN, BLOOD 50 mg/dL (7-18)
[2023-02-13] MEDS: LACTULOSE 10 G/15 ML UDC (PYXIS) PO SCH ×2 (09:28→17:58)
[2023-02-13] MEDS: PANTOPRAZOLE 40 MG/PACK PACK GT SCH (09:28)
[2023-02-13] MEDS: CHOLECALCIFEROL 1,000 UNIT TABLET (VIT D3) GT SCH (09:28)
[2023-02-13] MEDS: RIFAXIMIN 550 MG TABLET PO SCH ×2 (09:28→17:58)
[2023-02-13] MEDS: FERROUS SULFATE (325 MG) 325 MG/TAB TABLET GT SCH (09:28)
[2023-02-13] MEDS: SUCRALFATE 1 G TABLET GT SCH ×4 (09:29→22:47)
[2023-02-13] MEDS: DOXAZOSIN MESYLATE (1 MG) 1 MG TABLET GT SCH (09:29)
[2023-02-13] MEDS: FAMOTIDINE (20 MG) 20 MG TABLET GT SCH (09:29)
[2023-02-13] MEDS: METOPROLOL SUCCINATE 25 MG TAB.SR.24H GT SCH (09:30)
[2023-02-13] MEDS: methylPREDNISolone SOD SUCC 40 MG/ML VIAL IV SCH (09:46)
[2023-02-13] MEDS: ALBUMIN 25% 25 GM in PREMIX 1 EA IV SCH ×2 (13:01→19:58)
[2023-02-13 17:51] LABS: CREATININE, URINE 145.9 MG/DL (30.0-125.0); URINE TOTAL PROTEIN 22.1 mg/dL (0-11.9)
[2023-02-14] VITALS (9 sets, daily range): BP systolic 108–130; BP diastolic 52–57; TEMP 97.7–98.2; O2SAT 94–99
[2023-02-14] MEDS: IPRATROPIUM NEB FS 0.5 MG/2.5 ML AMPUL.NEB NEB SCH ×4 (01:06→20:15)
[2023-02-14] MEDS: ALBUTEROL FS 2.5 MG/0.5 ML VIAL.NEB NEB SCH ×4 (01:30→20:15)
[2023-02-14] MEDS: ALBUMIN 25% 25 GM in PREMIX 1 EA IV SCH (04:02)
[2023-02-14] MEDS: INSULIN REGULAR, HUMAN 100 UNIT/ML 3 ML VIAL SQ PRN ×4 (06:41→22:52)
[2023-02-14] MEDS: BLOOD SUGAR DIAGNOSTIC 1 EACH STRIP IN SCH ×4 (06:45→22:53)
[2023-02-14] MEDS: CHOLECALCIFEROL 1,000 UNIT TABLET (VIT D3) GT SCH (08:26)
[2023-02-14] MEDS: LACTULOSE 10 G/15 ML UDC (PYXIS) PO SCH ×2 (08:26→18:31)
[2023-02-14] MEDS: PANTOPRAZOLE 40 MG/PACK PACK GT SCH (08:26)
[2023-02-14] MEDS: FERROUS SULFATE (325 MG) 325 MG/TAB TABLET GT SCH (08:27)
[2023-02-14] MEDS: SUCRALFATE 1 G TABLET GT SCH ×4 (08:27→21:59)
[2023-02-14] MEDS: methylPREDNISolone SOD SUCC 40 MG/ML VIAL IV SCH (08:27)
[2023-02-14] MEDS: FAMOTIDINE (20 MG) 20 MG TABLET GT SCH (08:28)
[2023-02-14] MEDS: DOXAZOSIN MESYLATE (1 MG) 1 MG TABLET GT SCH (08:38)
[2023-02-14] MEDS: METOPROLOL SUCCINATE 25 MG TAB.SR.24H GT SCH (08:38)
[2023-02-14] MEDS: RIFAXIMIN 550 MG TABLET PO SCH ×2 (08:40→18:31)
[2023-02-14 10:19] LABS: ALANINE AMINOTRANSFERASE 25 U/L (12-78); ALBUMIN 3.9 g/dL (3.4-5.0); ALKALINE PHOSPHATASE 40 U/L (46-116); ASPARTATE AMINOTRANSFERASE 32 U/L (15-37); BILIRUBIN,TOTAL 1.3 mg/dL (0.2-1.0); CALCIUM, SERUM 9.2 mg/dL (8.5-10.1); CARBON DIOXIDE 11 mmol/L (21-32); CHLORIDE 96 mmol/L (98-107); CREATININE 3.3 mg/dL (0.6-1.3); GLUCOSE 256 mg/dL (74-106); SODIUM SERUM 124 mmol/L (136-145); TOTAL PROTEIN, SERUM 6.5 g/dL (6.4-8.2); UREA NITROGEN, BLOOD 68 mg/dL (7-18)
[2023-02-14] MEDS: BENZONATATE 100 MG CAPSULE PO SCH ×3 (11:47→18:31)
[2023-02-14 15:01] LABS: HEMATOCRIT 24 % (33-45); LYMPHOCYTES # (AUTO) 0.5 K/uL (0.8-4.8); LYMPHOCYTES % (AUTO) 5.2 % (20.0-44.0); MEAN CORPUSCULAR HEMOGLOBIN 33 PG (26.0-33.0); MEAN CORPUSCULAR HGB CONC 34 g/dl (31.0-36.0); MEAN CORPUSCULAR VOLUME 99 fL (82-100); MONOCYTES # (AUTO) 0.8 K/uL (0.1-1.30); MONOCYTES % (AUTO) 7.8 % (2.0-12.0); NEUTROPHILS # (AUTO) 8.9 K/uL (1.8-8.9); PLATELET COUNT (AUTO) 133 K/uL (150-450); RED BLOOD CELL COUNT(AUTO) 2.41 MIL/uL (4.0-5.2); RED CELL DISTRIBUTION WIDTH 16.2 % (11.5-15.0); WHITE BLOOD COUNT (AUTO) 10.2 K/uL (4.3-11.0)
[2023-02-14 18:10] LABS: LYMPHOCYTES % (MANUAL) 4 % (16-48); MONOCYTES % (MANUAL) 6 % (0-11.0); NEUTROPHILS % (MANUAL) 90 (42-76); PLATELET ESTIMATE DECREASED
[2023-02-14 18:11] LABS: ANISOCYTOSIS 1+; OVALOCYTES 1+
[2023-02-15] VITALS (12 sets, daily range): BP systolic 100–114; BP diastolic 47–49; TEMP 97.2–98.4; O2SAT 70–100
[2023-02-15] MEDS: IPRATROPIUM NEB FS 0.5 MG/2.5 ML AMPUL.NEB NEB SCH ×4 (01:13→20:19)
[2023-02-15] MEDS: ALBUTEROL FS 2.5 MG/0.5 ML VIAL.NEB NEB SCH ×4 (01:13→20:19)
[2023-02-15] MEDS: BLOOD SUGAR DIAGNOSTIC 1 EACH STRIP IN SCH ×4 (06:22→22:34)
[2023-02-15] MEDS: INSULIN REGULAR, HUMAN 100 UNIT/ML 3 ML VIAL SQ PRN ×4 (06:22→22:18)
[2023-02-15 07:41] LABS: EOSINOPHILS % (AUTO) 0.1 % (0.0-6.0); HEMATOCRIT 24 % (33-45); HEMOGLOBIN 7.8 g/dL (11.5-14.8); LYMPHOCYTES # (AUTO) 0.4 K/uL (0.8-4.8); LYMPHOCYTES % (AUTO) 5.9 % (20.0-44.0); MEAN CORPUSCULAR HEMOGLOBIN 33 PG (26.0-33.0); MEAN CORPUSCULAR HGB CONC 33 g/dl (31.0-36.0); MEAN CORPUSCULAR VOLUME 100 fL (82-100); MONOCYTES % (AUTO) 12.9 % (2.0-12.0); NEUTROPHILS # (AUTO) 6.2 K/uL (1.8-8.9); NEUTROPHILS % (AUTO) 81.1 % (43.0-81.0); PLATELET COUNT (AUTO) 113 K/uL (150-450); RED BLOOD CELL COUNT(AUTO) 2.37 MIL/uL (4.0-5.2); RED CELL DISTRIBUTION WIDTH 15.9 % (11.5-15.0); WHITE BLOOD COUNT (AUTO) 7.7 K/uL (4.3-11.0)
[2023-02-15 07:49] LABS: ALANINE AMINOTRANSFERASE 25 U/L (12-78); ALBUMIN 3.8 g/dL (3.4-5.0); ALKALINE PHOSPHATASE 39 U/L (46-116); ASPARTATE AMINOTRANSFERASE 27 U/L (15-37); BILIRUBIN,TOTAL 1.7 mg/dL (0.2-1.0); CALCIUM, SERUM 8.7 mg/dL (8.5-10.1); CARBON DIOXIDE 16 mmol/L (21-32); CHLORIDE 95 mmol/L (98-107); GLUCOSE 223 mg/dL (74-106); POTASSIUM 4.1 mmol/L (3.5-5.1); SODIUM SERUM 125 mmol/L (136-145); TOTAL PROTEIN, SERUM 5.9 g/dL (6.4-8.2); UREA NITROGEN, BLOOD 52 mg/dL (7-18)
[2023-02-15 08:06] LABS: HEPATITIS B CORE AB, IgM Negative (Negative); HEPATITIS B CORE AB, TOTAL Negative (Negative); HEPATITIS B SURFACE AB Reactive (.)
[2023-02-15] MEDS: METOPROLOL SUCCINATE 25 MG TAB.SR.24H GT SCH ×2 (09:00→09:16)
[2023-02-15] MEDS: DOXAZOSIN MESYLATE (1 MG) 1 MG TABLET GT SCH (09:00)
[2023-02-15] MEDS: SUCRALFATE 1 G TABLET GT SCH ×4 (09:07→20:37)
[2023-02-15] MEDS: FAMOTIDINE (20 MG) 20 MG TABLET GT SCH (09:14)
[2023-02-15] MEDS: FERROUS SULFATE (325 MG) 325 MG/TAB TABLET GT SCH (09:14)
[2023-02-15] MEDS: PANTOPRAZOLE 40 MG/PACK PACK GT SCH (09:14)
[2023-02-15] MEDS: CHOLECALCIFEROL 1,000 UNIT TABLET (VIT D3) GT SCH (09:16)
[2023-02-15] MEDS: LACTULOSE 10 G/15 ML UDC (PYXIS) PO SCH ×2 (09:16→17:45)
[2023-02-15] MEDS: RIFAXIMIN 550 MG TABLET PO SCH ×2 (09:17→17:45)
[2023-02-15] MEDS: BENZONATATE 100 MG CAPSULE PO SCH ×3 (09:17→17:45)
[2023-02-16] VITALS (9 sets, daily range): BP systolic 99–112; BP diastolic 44–48; TEMP 97.9–98.3; O2SAT 96–100
[2023-02-16] MEDS: ALBUTEROL FS 2.5 MG/0.5 ML VIAL.NEB NEB SCH ×4 (01:30→19:56)
[2023-02-16] MEDS: IPRATROPIUM NEB FS 0.5 MG/2.5 ML AMPUL.NEB NEB SCH ×4 (01:30→19:56)
[2023-02-16] MEDS: INSULIN REGULAR, HUMAN 100 UNIT/ML 3 ML VIAL SQ PRN ×4 (06:37→22:54)
[2023-02-16] MEDS: BLOOD SUGAR DIAGNOSTIC 1 EACH STRIP IN SCH ×4 (06:52→22:50)
[2023-02-16 07:18] LABS: BASOPHILS % (AUTO) 0.1 % (0.0-2.0); EOSINOPHILS # (AUTO) 0.1 K/uL (0.0-0.7); EOSINOPHILS % (AUTO) 1.2 % (0.0-6.0); HEMATOCRIT 23 % (33-45); HEMOGLOBIN 7.9 g/dL (11.5-14.8); LYMPHOCYTES # (AUTO) 0.5 K/uL (0.8-4.8); LYMPHOCYTES % (AUTO) 5.9 % (20.0-44.0); MEAN CORPUSCULAR HEMOGLOBIN 33 PG (26.0-33.0); MEAN CORPUSCULAR HGB CONC 34 g/dl (31.0-36.0); MEAN CORPUSCULAR VOLUME 98 fL (82-100); MONOCYTES # (AUTO) 1.3 K/uL (0.1-1.30); MONOCYTES % (AUTO) 14.2 % (2.0-12.0); NEUTROPHILS % (AUTO) 78.6 % (43.0-81.0); PLATELET COUNT (AUTO) 114 K/uL (150-450); RED BLOOD CELL COUNT(AUTO) 2.38 MIL/uL (4.0-5.2); RED CELL DISTRIBUTION WIDTH 16.1 % (11.5-15.0); WHITE BLOOD COUNT (AUTO) 8.9 K/uL (4.3-11.0)
[2023-02-16 07:59] LABS: ALANINE AMINOTRANSFERASE 25 U/L (12-78); ALBUMIN 3.6 g/dL (3.4-5.0); ALKALINE PHOSPHATASE 46 U/L (46-116); ASPARTATE AMINOTRANSFERASE 30 U/L (15-37); BILIRUBIN,TOTAL 1.8 mg/dL (0.2-1.0); CALCIUM, SERUM 8.8 mg/dL (8.5-10.1); CARBON DIOXIDE 22 mmol/L (21-32); CHLORIDE 97 mmol/L (98-107); CREATININE 2.8 mg/dL (0.6-1.3); GLUCOSE 230 mg/dL (74-106); POTASSIUM 3.5 mmol/L (3.5-5.1); SODIUM SERUM 129 mmol/L (136-145); TOTAL PROTEIN, SERUM 5.6 g/dL (6.4-8.2); UREA NITROGEN, BLOOD 38 mg/dL (7-18)
[2023-02-16] MEDS: LACTULOSE 10 G/15 ML UDC (PYXIS) PO SCH ×2 (08:56→17:09)
[2023-02-16] MEDS: FERROUS SULFATE (325 MG) 325 MG/TAB TABLET GT SCH (08:56)
[2023-02-16] MEDS: PANTOPRAZOLE 40 MG/PACK PACK GT SCH (08:56)
[2023-02-16] MEDS: CHOLECALCIFEROL 1,000 UNIT TABLET (VIT D3) GT SCH (08:57)
[2023-02-16] MEDS: BENZONATATE 100 MG CAPSULE PO SCH ×3 (08:57→17:09)
[2023-02-16] MEDS: FAMOTIDINE (20 MG) 20 MG TABLET GT SCH (08:57)
[2023-02-16] MEDS: SUCRALFATE 1 G TABLET GT SCH ×4 (08:57→21:40)
[2023-02-16] MEDS: RIFAXIMIN 550 MG TABLET PO SCH ×2 (08:57→17:09)
[2023-02-16] MEDS: METOPROLOL SUCCINATE 25 MG TAB.SR.24H GT SCH (09:00)
[2023-02-16] MEDS: DOXAZOSIN MESYLATE (1 MG) 1 MG TABLET GT SCH (09:00)
[2023-02-17] VITALS (11 sets, daily range): BP systolic 107–118; BP diastolic 44–45; TEMP 97.5–98.6; O2SAT 97–100
[2023-02-17] MEDS: IPRATROPIUM NEB FS 0.5 MG/2.5 ML AMPUL.NEB NEB SCH ×4 (01:50→20:18)
[2023-02-17] MEDS: ALBUTEROL FS 2.5 MG/0.5 ML VIAL.NEB NEB SCH ×4 (01:50→20:18)
[2023-02-17] MEDS: BLOOD SUGAR DIAGNOSTIC 1 EACH STRIP IN SCH ×4 (06:41→22:15)
[2023-02-17] MEDS: INSULIN REGULAR, HUMAN 100 UNIT/ML 3 ML VIAL SQ PRN ×4 (06:43→22:15)
[2023-02-17 08:04] LABS: EOSINOPHILS # (AUTO) 0.3 K/uL (0.0-0.7); EOSINOPHILS % (AUTO) 3.2 % (0.0-6.0); HEMATOCRIT 24 % (33-45); HEMOGLOBIN 8.1 g/dL (11.5-14.8); LYMPHOCYTES # (AUTO) 0.7 K/uL (0.8-4.8); LYMPHOCYTES % (AUTO) 7.2 % (20.0-44.0); MEAN CORPUSCULAR HEMOGLOBIN 34 PG (26.0-33.0); MEAN CORPUSCULAR HGB CONC 34 g/dl (31.0-36.0); MEAN CORPUSCULAR VOLUME 98 fL (82-100); MONOCYTES # (AUTO) 1.2 K/uL (0.1-1.30); MONOCYTES % (AUTO) 12.5 % (2.0-12.0); NEUTROPHILS # (AUTO) 7.7 K/uL (1.8-8.9); NEUTROPHILS % (AUTO) 77.1 % (43.0-81.0); PLATELET COUNT (AUTO) 101 K/uL (150-450); RED BLOOD CELL COUNT(AUTO) 2.41 MIL/uL (4.0-5.2); RED CELL DISTRIBUTION WIDTH 15.8 % (11.5-15.0)
[2023-02-17 08:38] LABS: ALANINE AMINOTRANSFERASE 24 U/L (12-78); ALBUMIN 3.3 g/dL (3.4-5.0); ALKALINE PHOSPHATASE 42 U/L (46-116); ASPARTATE AMINOTRANSFERASE 27 U/L (15-37); BILIRUBIN,TOTAL 2.4 mg/dL (0.2-1.0); CALCIUM, SERUM 8.4 mg/dL (8.5-10.1); CARBON DIOXIDE 22 mmol/L (21-32); CHLORIDE 98 mmol/L (98-107); CREATININE 2.9 mg/dL (0.6-1.3); GLUCOSE 177 mg/dL (74-106); POTASSIUM 3.3 mmol/L (3.5-5.1); SODIUM SERUM 130 mmol/L (136-145); TOTAL PROTEIN, SERUM 5.2 g/dL (6.4-8.2); UREA NITROGEN, BLOOD 30 mg/dL (7-18)
[2023-02-17] MEDS: FERROUS SULFATE (325 MG) 325 MG/TAB TABLET GT SCH (08:40)
[2023-02-17] MEDS: DOXAZOSIN MESYLATE (1 MG) 1 MG TABLET GT SCH (08:40)
[2023-02-17] MEDS: SUCRALFATE 1 G TABLET GT SCH ×4 (08:40→20:51)
[2023-02-17] MEDS: FAMOTIDINE (20 MG) 20 MG TABLET GT SCH (08:40)
[2023-02-17] MEDS: PANTOPRAZOLE 40 MG/PACK PACK GT SCH (08:41)
[2023-02-17] MEDS: METOPROLOL SUCCINATE 25 MG TAB.SR.24H GT SCH (08:41)
[2023-02-17] MEDS: LACTULOSE 10 G/15 ML UDC (PYXIS) PO SCH ×2 (08:42→17:43)
[2023-02-17] MEDS: BENZONATATE 100 MG CAPSULE PO SCH ×3 (08:42→17:43)
[2023-02-17] MEDS: RIFAXIMIN 550 MG TABLET PO SCH ×2 (08:42→17:43)
[2023-02-17] MEDS: CHOLECALCIFEROL 1,000 UNIT TABLET (VIT D3) GT SCH (08:42)
[2023-02-17] MEDS ORDERED: POTASSIUM CHLORIDE 20 MEQ TAB.PRT.SR PO ONE (09:30)
[2023-02-17] MEDS: GUAIFENESIN/D-METHORPHAN HB 5 ML UDC PO PRN (16:13)
[2023-02-17] MEDS ORDERED: ALBUMIN 25% 25 GM in PREMIX 1 EA IV PRN (17:30)
[2023-02-18] VITALS (10 sets, daily range): BP systolic 106–116; BP diastolic 45; TEMP 98.4–98.8; O2SAT 95–99
[2023-02-18] MEDS: IPRATROPIUM NEB FS 0.5 MG/2.5 ML AMPUL.NEB NEB SCH ×4 (01:53→19:52)
[2023-02-18] MEDS: ALBUTEROL FS 2.5 MG/0.5 ML VIAL.NEB NEB SCH ×4 (01:53→19:52)
[2023-02-18] MEDS: INSULIN REGULAR, HUMAN 100 UNIT/ML 3 ML VIAL SQ PRN ×4 (06:54→23:19)
[2023-02-18] MEDS: BLOOD SUGAR DIAGNOSTIC 1 EACH STRIP IN SCH ×4 (06:56→22:00)
[2023-02-18 07:34] LABS: BASOPHILS % (AUTO) 0.1 % (0.0-2.0); EOSINOPHILS # (AUTO) 0.3 K/uL (0.0-0.7); EOSINOPHILS % (AUTO) 3.3 % (0.0-6.0); HEMATOCRIT 24 % (33-45); LYMPHOCYTES # (AUTO) 0.6 K/uL (0.8-4.8); LYMPHOCYTES % (AUTO) 6.2 % (20.0-44.0); MEAN CORPUSCULAR HEMOGLOBIN 34 PG (26.0-33.0); MEAN CORPUSCULAR HGB CONC 33 g/dl (31.0-36.0); MEAN CORPUSCULAR VOLUME 101 fL (82-100); MONOCYTES # (AUTO) 1.3 K/uL (0.1-1.30); MONOCYTES % (AUTO) 12.6 % (2.0-12.0); NEUTROPHILS # (AUTO) 7.7 K/uL (1.8-8.9); NEUTROPHILS % (AUTO) 77.8 % (43.0-81.0); PLATELET COUNT (AUTO) 96 K/uL (150-450); RED BLOOD CELL COUNT(AUTO) 2.38 MIL/uL (4.0-5.2); RED CELL DISTRIBUTION WIDTH 16.3 % (11.5-15.0)
[2023-02-18 08:17] LABS: CALCIUM, SERUM 8.3 mg/dL (8.5-10.1); CARBON DIOXIDE 25 mmol/L (21-32); CHLORIDE 103 mmol/L (98-107); CREATININE 3.2 mg/dL (0.6-1.3); GLUCOSE 259 mg/dL (74-106); MAGNESIUM 2.2 mg/dL (1.8-2.4); PHOSPHORUS 1.6 mg/dL (2.5-4.9); POTASSIUM 3.8 mmol/L (3.5-5.1); SODIUM SERUM 135 mmol/L (136-145); UREA NITROGEN, BLOOD 24 mg/dL (7-18)
[2023-02-18] MEDS: METOPROLOL SUCCINATE 25 MG TAB.SR.24H GT SCH (09:00)
[2023-02-18] MEDS: DOXAZOSIN MESYLATE (1 MG) 1 MG TABLET GT SCH (09:00)
[2023-02-18 09:31] LABS: ANISOCYTOSIS 1+; EOSINOPHILS % (MANUAL) 4 % (0-4); LYMPHOCYTES % (MANUAL) 5 % (16-48); MONOCYTES % (MANUAL) 7 % (0-11.0); NEUTROPHILS % (MANUAL) 84 (42-76); PLATELET ESTIMATE DECREASED
[2023-02-18] MEDS: SUCRALFATE 1 G TABLET GT SCH ×4 (09:59→23:18)
[2023-02-18] MEDS: PANTOPRAZOLE 40 MG/PACK PACK GT SCH (10:01)
[2023-02-18] MEDS: FERROUS SULFATE (325 MG) 325 MG/TAB TABLET GT SCH (10:01)
[2023-02-18] MEDS: FAMOTIDINE (20 MG) 20 MG TABLET GT SCH (10:01)
[2023-02-18] MEDS: LACTULOSE 10 G/15 ML UDC (PYXIS) PO SCH ×2 (10:02→16:58)
[2023-02-18] MEDS: RIFAXIMIN 550 MG TABLET PO SCH ×2 (10:02→16:58)
[2023-02-18] MEDS: BENZONATATE 100 MG CAPSULE PO SCH ×3 (10:02→16:58)
[2023-02-18] MEDS: CHOLECALCIFEROL 1,000 UNIT TABLET (VIT D3) GT SCH (10:02)
[2023-02-18] MEDS: GUAIFENESIN/D-METHORPHAN HB 5 ML UDC PO PRN (12:48)
[2023-02-18] MEDS ORDERED: K PHOS NEUTRAL 250 MG TABLET PO ONE (16:30)
[2023-02-19] VITALS (9 sets, daily range): BP systolic 111–116; BP diastolic 49–58; TEMP 98.5–99; O2SAT 97–100
[2023-02-19] MEDS: IPRATROPIUM NEB FS 0.5 MG/2.5 ML AMPUL.NEB NEB SCH ×4 (01:30→20:05)
[2023-02-19] MEDS: ALBUTEROL FS 2.5 MG/0.5 ML VIAL.NEB NEB SCH ×4 (01:30→20:05)
[2023-02-19] MEDS: GUAIFENESIN/D-METHORPHAN HB 5 ML UDC PO PRN (06:20)
[2023-02-19] MEDS: INSULIN REGULAR, HUMAN 100 UNIT/ML 3 ML VIAL SQ PRN ×3 (06:21→18:09)
[2023-02-19] MEDS: BLOOD SUGAR DIAGNOSTIC 1 EACH STRIP IN SCH ×4 (07:28→23:59)
[2023-02-19] MEDS: LACTULOSE 10 G/15 ML UDC (PYXIS) PO SCH ×2 (08:17→17:36)
[2023-02-19] MEDS: PANTOPRAZOLE 40 MG/PACK PACK GT SCH (08:17)
[2023-02-19] MEDS: FERROUS SULFATE (325 MG) 325 MG/TAB TABLET GT SCH (08:17)
[2023-02-19] MEDS: SUCRALFATE 1 G TABLET GT SCH ×5 (08:18→23:59)
[2023-02-19] MEDS: CHOLECALCIFEROL 1,000 UNIT TABLET (VIT D3) GT SCH (08:18)
[2023-02-19] MEDS: FAMOTIDINE (20 MG) 20 MG TABLET GT SCH (08:18)
[2023-02-19] MEDS: RIFAXIMIN 550 MG TABLET PO SCH ×2 (08:19→17:36)
[2023-02-19] MEDS: BENZONATATE 100 MG CAPSULE PO SCH ×3 (08:19→17:36)
[2023-02-19] MEDS: DOXAZOSIN MESYLATE (1 MG) 1 MG TABLET GT SCH (09:00)
[2023-02-19] MEDS: METOPROLOL SUCCINATE 25 MG TAB.SR.24H GT SCH (09:56)
[2023-02-19 11:15] LABS: CALCIUM, SERUM 8.5 mg/dL (8.5-10.1); CARBON DIOXIDE 24 mmol/L (21-32); CHLORIDE 100 mmol/L (98-107); CREATININE 4.1 mg/dL (0.6-1.3); GLUCOSE 308 mg/dL (74-106); MAGNESIUM 2.2 mg/dL (1.8-2.4); PHOSPHORUS 2.7 mg/dL (2.5-4.9); POTASSIUM 3.9 mmol/L (3.5-5.1); SODIUM SERUM 133 mmol/L (136-145); UREA NITROGEN, BLOOD 33 mg/dL (7-18)
[2023-02-19 11:31] LABS: BASOPHILS % (AUTO) 0.3 % (0.0-2.0); EOSINOPHILS # (AUTO) 0.4 K/uL (0.0-0.7); EOSINOPHILS % (AUTO) 3.6 % (0.0-6.0); HEMATOCRIT 26 % (33-45); HEMOGLOBIN 8.7 g/dL (11.5-14.8); LYMPHOCYTES # (AUTO) 0.5 K/uL (0.8-4.8); LYMPHOCYTES % (AUTO) 4.5 % (20.0-44.0); MEAN CORPUSCULAR HEMOGLOBIN 34 PG (26.0-33.0); MEAN CORPUSCULAR HGB CONC 34 g/dl (31.0-36.0); MEAN CORPUSCULAR VOLUME 101 fL (82-100); MONOCYTES # (AUTO) 1.4 K/uL (0.1-1.30); MONOCYTES % (AUTO) 12.6 % (2.0-12.0); NEUTROPHILS # (AUTO) 8.6 K/uL (1.8-8.9); PLATELET COUNT (AUTO) 107 K/uL (150-450); RED BLOOD CELL COUNT(AUTO) 2.54 MIL/uL (4.0-5.2); RED CELL DISTRIBUTION WIDTH 17.1 % (11.5-15.0); WHITE BLOOD COUNT (AUTO) 10.9 K/uL (4.3-11.0)
[2023-02-20] MEDS: INSULIN REGULAR, HUMAN 100 UNIT/ML 3 ML VIAL SQ PRN ×5 (00:06→22:41)
[2023-02-20] MEDS: ALBUTEROL FS 2.5 MG/0.5 ML VIAL.NEB NEB SCH ×4 (01:30→19:30)
[2023-02-20] MEDS: IPRATROPIUM NEB FS 0.5 MG/2.5 ML AMPUL.NEB NEB SCH ×4 (01:30→19:30)
[2023-02-20] MEDS: BLOOD SUGAR DIAGNOSTIC 1 EACH STRIP IN SCH ×4 (06:37→22:40)
[2023-02-20 07:25] LABS: BASOPHILS % (AUTO) 0.1 % (0.0-2.0); EOSINOPHILS # (AUTO) 0.4 K/uL (0.0-0.7); EOSINOPHILS % (AUTO) 3.9 % (0.0-6.0); HEMATOCRIT 24 % (33-45); HEMOGLOBIN 8.4 g/dL (11.5-14.8); LYMPHOCYTES # (AUTO) 0.5 K/uL (0.8-4.8); LYMPHOCYTES % (AUTO) 5.1 % (20.0-44.0); MEAN CORPUSCULAR HEMOGLOBIN 34 PG (26.0-33.0); MEAN CORPUSCULAR HGB CONC 34 g/dl (31.0-36.0); MEAN CORPUSCULAR VOLUME 99 fL (82-100); MONOCYTES # (AUTO) 1.4 K/uL (0.1-1.30); MONOCYTES % (AUTO) 13.4 % (2.0-12.0); NEUTROPHILS % (AUTO) 77.5 % (43.0-81.0); PLATELET COUNT (AUTO) 110 K/uL (150-450); RED BLOOD CELL COUNT(AUTO) 2.47 MIL/uL (4.0-5.2); RED CELL DISTRIBUTION WIDTH 16.6 % (11.5-15.0); WHITE BLOOD COUNT (AUTO) 10.3 K/uL (4.3-11.0)
[2023-02-20 07:46] LABS: CALCIUM, SERUM 8.3 mg/dL (8.5-10.1); CARBON DIOXIDE 29 mmol/L (21-32); CHLORIDE 100 mmol/L (98-107); CREATININE 3.2 mg/dL (0.6-1.3); GLUCOSE 216 mg/dL (74-106); PHOSPHORUS 2.2 mg/dL (2.5-4.9); POTASSIUM 3.6 mmol/L (3.5-5.1); SODIUM SERUM 133 mmol/L (136-145); UREA NITROGEN, BLOOD 26 mg/dL (7-18)
[2023-02-20] MEDS: BENZONATATE 100 MG CAPSULE PO SCH ×3 (08:56→16:46)
[2023-02-20] MEDS: RIFAXIMIN 550 MG TABLET PO SCH ×2 (08:56→16:45)
[2023-02-20] MEDS: FERROUS SULFATE (325 MG) 325 MG/TAB TABLET GT SCH (08:56)
[2023-02-20] MEDS: DOXAZOSIN MESYLATE (1 MG) 1 MG TABLET GT SCH (08:56)
[2023-02-20] MEDS: LACTULOSE 10 G/15 ML UDC (PYXIS) PO SCH ×2 (08:56→16:46)
[2023-02-20] MEDS: CHOLECALCIFEROL 1,000 UNIT TABLET (VIT D3) GT SCH (08:56)
[2023-02-20] MEDS: PANTOPRAZOLE 40 MG/PACK PACK GT SCH (08:56)
[2023-02-20] MEDS: SUCRALFATE 1 G TABLET GT SCH ×4 (08:57→20:23)
[2023-02-20] MEDS: METOPROLOL SUCCINATE 25 MG TAB.SR.24H GT SCH (08:57)
[2023-02-20] MEDS: FAMOTIDINE (20 MG) 20 MG TABLET GT SCH (08:57)
[2023-02-20 09:56] VITALS: BP 117/50; TEMP 98.1; O2SAT 95
[2023-02-20 11:25] LABS: EOSINOPHILS % (MANUAL) 4 % (0-4); LYMPHOCYTES % (MANUAL) 3 % (16-48); MONOCYTES % (MANUAL) 4 % (0-11.0); NEUTROPHILS % (MANUAL) 89 (42-76)
[2023-02-20 11:26] LABS: PLATELET ESTIMATE DECREASED
[2023-02-20 14:06] VITALS: O2SAT 95
[2023-02-20 14:18] VITALS: O2SAT 95
[2023-02-20 16:30] VITALS: BP 87/38; TEMP 98.3; O2SAT 98
[2023-02-20] MEDS: GUAIFENESIN/D-METHORPHAN HB 5 ML UDC PO PRN (16:46)
[2023-02-20 18:00] VITALS: BP 96/58; TEMP 98.3; O2SAT 98
[2023-02-21] VITALS (11 sets, daily range): BP systolic 100–117; BP diastolic 45–56; TEMP 97.6–98.6; O2SAT 95–100
[2023-02-21] MEDS: ALBUTEROL FS 2.5 MG/0.5 ML VIAL.NEB NEB SCH ×4 (02:16→19:30)
[2023-02-21] MEDS: IPRATROPIUM NEB FS 0.5 MG/2.5 ML AMPUL.NEB NEB SCH ×4 (02:16→19:30)
[2023-02-21] MEDS: BLOOD SUGAR DIAGNOSTIC 1 EACH STRIP IN SCH ×4 (06:40→22:06)
[2023-02-21] MEDS: INSULIN REGULAR, HUMAN 100 UNIT/ML 3 ML VIAL SQ PRN ×3 (06:44→17:04)
[2023-02-21 06:55] LABS: BASOPHILS % (AUTO) 0.3 % (0.0-2.0); EOSINOPHILS # (AUTO) 0.4 K/uL (0.0-0.7); EOSINOPHILS % (AUTO) 3.8 % (0.0-6.0); HEMATOCRIT 25 % (33-45); HEMOGLOBIN 8.6 g/dL (11.5-14.8); LYMPHOCYTES # (AUTO) 0.6 K/uL (0.8-4.8); LYMPHOCYTES % (AUTO) 6.8 % (20.0-44.0); MEAN CORPUSCULAR HEMOGLOBIN 34 PG (26.0-33.0); MEAN CORPUSCULAR HGB CONC 34 g/dl (31.0-36.0); MEAN CORPUSCULAR VOLUME 99 fL (82-100); MONOCYTES # (AUTO) 1.7 K/uL (0.1-1.30); MONOCYTES % (AUTO) 17.8 % (2.0-12.0); NEUTROPHILS # (AUTO) 6.7 K/uL (1.8-8.9); NEUTROPHILS % (AUTO) 71.3 % (43.0-81.0); PLATELET COUNT (AUTO) 101 K/uL (150-450); RED BLOOD CELL COUNT(AUTO) 2.55 MIL/uL (4.0-5.2); RED CELL DISTRIBUTION WIDTH 16.4 % (11.5-15.0); WHITE BLOOD COUNT (AUTO) 9.4 K/uL (4.3-11.0)
[2023-02-21 07:21] LABS: ALANINE AMINOTRANSFERASE 19 U/L (12-78); ALBUMIN 2.7 g/dL (3.4-5.0); ALKALINE PHOSPHATASE 56 U/L (46-116); ASPARTATE AMINOTRANSFERASE 29 U/L (15-37); BILIRUBIN,TOTAL 3.2 mg/dL (0.2-1.0); CALCIUM, SERUM 8.4 mg/dL (8.5-10.1); CARBON DIOXIDE 26 mmol/L (21-32); CHLORIDE 99 mmol/L (98-107); CREATININE 3.9 mg/dL (0.6-1.3); GLUCOSE 192 mg/dL (74-106); MAGNESIUM 2.1 mg/dL (1.8-2.4); PHOSPHORUS 2.3 mg/dL (2.5-4.9); POTASSIUM 3.6 mmol/L (3.5-5.1); SODIUM SERUM 132 mmol/L (136-145); TOTAL PROTEIN, SERUM 4.7 g/dL (6.4-8.2); UREA NITROGEN, BLOOD 33 mg/dL (7-18)
[2023-02-21] MEDS: CHOLECALCIFEROL 1,000 UNIT TABLET (VIT D3) GT SCH (08:52)
[2023-02-21] MEDS: BENZONATATE 100 MG CAPSULE PO SCH ×3 (08:52→17:02)
[2023-02-21] MEDS: LACTULOSE 10 G/15 ML UDC (PYXIS) PO SCH ×2 (08:52→17:02)
[2023-02-21] MEDS: FAMOTIDINE (20 MG) 20 MG TABLET GT SCH (08:53)
[2023-02-21] MEDS: SUCRALFATE 1 G TABLET GT SCH ×4 (08:53→21:34)
[2023-02-21] MEDS: FERROUS SULFATE (325 MG) 325 MG/TAB TABLET GT SCH (08:53)
[2023-02-21] MEDS: RIFAXIMIN 550 MG TABLET PO SCH ×2 (08:53→17:02)
[2023-02-21] MEDS: PANTOPRAZOLE 40 MG/PACK PACK GT SCH (08:53)
[2023-02-21] MEDS: METOPROLOL SUCCINATE 25 MG TAB.SR.24H GT SCH (08:54)
[2023-02-21] MEDS: DOXAZOSIN MESYLATE (1 MG) 1 MG TABLET GT SCH (09:00)
[2023-02-22] MEDS: ALBUTEROL FS 2.5 MG/0.5 ML VIAL.NEB NEB SCH ×4 (01:30→19:30)
[2023-02-22] MEDS: IPRATROPIUM NEB FS 0.5 MG/2.5 ML AMPUL.NEB NEB SCH ×4 (01:30→19:30)
[2023-02-22] MEDS: BLOOD SUGAR DIAGNOSTIC 1 EACH STRIP IN SCH ×4 (06:31→22:11)
[2023-02-22 07:17] LABS: BASOPHILS # (AUTO) 0.1 K/uL (0.0-0.2); BASOPHILS % (AUTO) 0.6 % (0.0-2.0); EOSINOPHILS # (AUTO) 0.3 K/uL (0.0-0.7); EOSINOPHILS % (AUTO) 4.1 % (0.0-6.0); HEMATOCRIT 26 % (33-45); HEMOGLOBIN 9.1 g/dL (11.5-14.8); LYMPHOCYTES # (AUTO) 0.6 K/uL (0.8-4.8); LYMPHOCYTES % (AUTO) 7.5 % (20.0-44.0); MEAN CORPUSCULAR HEMOGLOBIN 35 PG (26.0-33.0); MEAN CORPUSCULAR HGB CONC 35 g/dl (31.0-36.0); MEAN CORPUSCULAR VOLUME 100 fL (82-100); MONOCYTES # (AUTO) 1.6 K/uL (0.1-1.30); MONOCYTES % (AUTO) 18.6 % (2.0-12.0); NEUTROPHILS % (AUTO) 69.2 % (43.0-81.0); PLATELET COUNT (AUTO) 98 K/uL (150-450); RED BLOOD CELL COUNT(AUTO) 2.64 MIL/uL (4.0-5.2); RED CELL DISTRIBUTION WIDTH 16.3 % (11.5-15.0); WHITE BLOOD COUNT (AUTO) 8.6 K/uL (4.3-11.0)
[2023-02-22 07:50] VITALS: O2SAT 98
[2023-02-22 08:00] VITALS: BP 111/48; TEMP 98.1; O2SAT 100
[2023-02-22 08:06] VITALS: O2SAT 100
[2023-02-22 08:42] LABS: ALANINE AMINOTRANSFERASE 23 U/L (12-78); ALBUMIN 2.6 g/dL (3.4-5.0); ALKALINE PHOSPHATASE 58 U/L (46-116); ASPARTATE AMINOTRANSFERASE 32 U/L (15-37); BILIRUBIN,TOTAL 2.8 mg/dL (0.2-1.0); CALCIUM, SERUM 8.5 mg/dL (8.5-10.1); CARBON DIOXIDE 24 mmol/L (21-32); CHLORIDE 97 mmol/L (98-107); CREATININE 4.3 mg/dL (0.6-1.3); GLUCOSE 218 mg/dL (74-106); POTASSIUM 3.9 mmol/L (3.5-5.1); SODIUM SERUM 129 mmol/L (136-145); TOTAL PROTEIN, SERUM 4.8 g/dL (6.4-8.2); UREA NITROGEN, BLOOD 40 mg/dL (7-18)
[2023-02-22] MEDS: DOXAZOSIN MESYLATE (1 MG) 1 MG TABLET GT SCH (09:00)
[2023-02-22] MEDS: RIFAXIMIN 550 MG TABLET PO SCH ×2 (09:00→18:17)
[2023-02-22] MEDS: SUCRALFATE 1 G TABLET GT SCH ×3 (09:00→18:17)
[2023-02-22] MEDS: PANTOPRAZOLE 40 MG/PACK PACK GT SCH (09:00)
[2023-02-22] MEDS: BENZONATATE 100 MG CAPSULE PO SCH ×3 (09:00→18:17)
[2023-02-22] MEDS: FAMOTIDINE (20 MG) 20 MG TABLET GT SCH (09:00)
[2023-02-22] MEDS: CHOLECALCIFEROL 1,000 UNIT TABLET (VIT D3) GT SCH (09:00)
[2023-02-22] MEDS: FERROUS SULFATE (325 MG) 325 MG/TAB TABLET GT SCH (09:00)
[2023-02-22] MEDS: METOPROLOL SUCCINATE 25 MG TAB.SR.24H GT SCH (09:00)
[2023-02-22] MEDS: LACTULOSE 10 G/15 ML UDC (PYXIS) PO SCH ×2 (09:00→18:17)
[2023-02-22] MEDS ORDERED: LIDOCAINE 1% INJ 50 ML MDV IJ ONE (13:05)
[2023-02-22] MEDS ORDERED: HEPARIN SODIUM, PORCINE 1,000 UNIT/ML VIAL ONE (13:05)
[2023-02-22] MEDS ORDERED: IOHEXOL 240MG/ML 0 ML IV ONE (13:05)
[2023-02-22 14:22] LABS: EOSINOPHILS % (MANUAL) 2 % (0-4); LYMPHOCYTES % (MANUAL) 6 % (16-48); MONOCYTES % (MANUAL) 12 % (0-11.0); NEUTROPHILS % (MANUAL) 80 (42-76)
[2023-02-22 14:23] LABS: PLATELET ESTIMATE DECREASED
[2023-02-22 16:00] VITALS: BP 115/50; TEMP 97.8; O2SAT 98
[2023-02-22 20:00] VITALS: BP 104/46; TEMP 98.5; O2SAT 99
[2023-02-22] MEDS: ACETAMINOPHEN 650 MG/20.3 ML UDC GT PRN (20:08)
[2023-02-22] MEDS: INSULIN REGULAR, HUMAN 100 UNIT/ML 3 ML VIAL SQ PRN (22:11)
[2023-02-23] VITALS (7 sets, daily range): BP systolic 100–104; BP diastolic 50–60; TEMP 98.7–100.4; O2SAT 95–99
[2023-02-23] MEDS: CLINDAMYCIN 600 MG in IV D5W 50 ML IV SCH ×2 (00:19→04:51)
[2023-02-23] MEDS: SUCRALFATE 1 G TABLET GT SCH ×5 (00:21→20:40)
[2023-02-23] MEDS: ALBUTEROL FS 2.5 MG/0.5 ML VIAL.NEB NEB SCH ×4 (01:30→19:30)
[2023-02-23] MEDS: IPRATROPIUM NEB FS 0.5 MG/2.5 ML AMPUL.NEB NEB SCH ×4 (01:30→19:30)
[2023-02-23] MEDS: INSULIN REGULAR, HUMAN 100 UNIT/ML 3 ML VIAL SQ PRN ×4 (06:55→21:39)
[2023-02-23] MEDS: BLOOD SUGAR DIAGNOSTIC 1 EACH STRIP IN SCH ×4 (06:55→21:35)
[2023-02-23 07:28] LABS: BASOPHILS # (AUTO) 0.1 K/uL (0.0-0.2); BASOPHILS % (AUTO) 0.7 % (0.0-2.0); EOSINOPHILS # (AUTO) 0.3 K/uL (0.0-0.7); EOSINOPHILS % (AUTO) 3.3 % (0.0-6.0); HEMATOCRIT 26 % (33-45); HEMOGLOBIN 8.6 g/dL (11.5-14.8); LYMPHOCYTES # (AUTO) 0.8 K/uL (0.8-4.8); LYMPHOCYTES % (AUTO) 9.1 % (20.0-44.0); MEAN CORPUSCULAR HEMOGLOBIN 34 PG (26.0-33.0); MEAN CORPUSCULAR HGB CONC 34 g/dl (31.0-36.0); MEAN CORPUSCULAR VOLUME 102 fL (82-100); MONOCYTES # (AUTO) 1.8 K/uL (0.1-1.30); MONOCYTES % (AUTO) 21.2 % (2.0-12.0); NEUTROPHILS # (AUTO) 5.6 K/uL (1.8-8.9); NEUTROPHILS % (AUTO) 65.7 % (43.0-81.0); PLATELET COUNT (AUTO) 84 K/uL (150-450); RED BLOOD CELL COUNT(AUTO) 2.53 MIL/uL (4.0-5.2); RED CELL DISTRIBUTION WIDTH 17.2 % (11.5-15.0); WHITE BLOOD COUNT (AUTO) 8.6 K/uL (4.3-11.0)
[2023-02-23 08:12] LABS: ALANINE AMINOTRANSFERASE 21 U/L (12-78); ALBUMIN 2.6 g/dL (3.4-5.0); ALKALINE PHOSPHATASE 58 U/L (46-116); ASPARTATE AMINOTRANSFERASE 29 U/L (15-37); BILIRUBIN,TOTAL 2.8 mg/dL (0.2-1.0); CALCIUM, SERUM 8.2 mg/dL (8.5-10.1); CARBON DIOXIDE 28 mmol/L (21-32); CHLORIDE 101 mmol/L (98-107); CREATININE 3.2 mg/dL (0.6-1.3); GLUCOSE 205 mg/dL (74-106); POTASSIUM 3.7 mmol/L (3.5-5.1); SODIUM SERUM 133 mmol/L (136-145); TOTAL PROTEIN, SERUM 4.6 g/dL (6.4-8.2); UREA NITROGEN, BLOOD 26 mg/dL (7-18)
[2023-02-23] MEDS: METOPROLOL SUCCINATE 25 MG TAB.SR.24H GT SCH (09:00)
[2023-02-23] MEDS: DOXAZOSIN MESYLATE (1 MG) 1 MG TABLET GT SCH (09:00)
[2023-02-23] MEDS: PANTOPRAZOLE 40 MG/PACK PACK GT SCH (09:28)
[2023-02-23] MEDS: RIFAXIMIN 550 MG TABLET PO SCH ×2 (09:28→18:46)
[2023-02-23] MEDS: LACTULOSE 10 G/15 ML UDC (PYXIS) PO SCH ×2 (09:29→18:47)
[2023-02-23] MEDS: FERROUS SULFATE (325 MG) 325 MG/TAB TABLET GT SCH (09:29)
[2023-02-23] MEDS: BENZONATATE 100 MG CAPSULE PO SCH ×3 (09:29→18:47)
[2023-02-23] MEDS: CHOLECALCIFEROL 1,000 UNIT TABLET (VIT D3) GT SCH (09:29)
[2023-02-23] MEDS: FAMOTIDINE (20 MG) 20 MG TABLET GT SCH (09:30)
[2023-02-23 13:21] LABS: ANISOCYTOSIS 1+; BASOPHILS % (MANUAL) 0 % (0.0-2.0); EOSINOPHILS % (MANUAL) 2 % (0-4); LYMPHOCYTES % (MANUAL) 8 % (16-48); MONOCYTES % (MANUAL) 15 % (0-11.0); NEUTROPHILS % (MANUAL) 75 (42-76); PLATELET ESTIMATE DECREASED
[2023-02-24] MEDS: ALBUTEROL FS 2.5 MG/0.5 ML VIAL.NEB NEB SCH ×2 (01:06→07:35)
[2023-02-24] MEDS: IPRATROPIUM NEB FS 0.5 MG/2.5 ML AMPUL.NEB NEB SCH ×2 (01:06→07:35)
[2023-02-24] MEDS: BLOOD SUGAR DIAGNOSTIC 1 EACH STRIP IN SCH ×2 (06:34→11:54)
[2023-02-24] MEDS: INSULIN REGULAR, HUMAN 100 UNIT/ML 3 ML VIAL SQ PRN ×2 (06:37→11:56)
[2023-02-24 07:00] VITALS: BP 106/59; TEMP 98.4; O2SAT 94
[2023-02-24 07:16] LABS: BASOPHILS # (AUTO) 0.1 K/uL (0.0-0.2); BASOPHILS % (AUTO) 0.7 % (0.0-2.0); EOSINOPHILS # (AUTO) 0.2 K/uL (0.0-0.7); EOSINOPHILS % (AUTO) 2.7 % (0.0-6.0); HEMATOCRIT 25 % (33-45); HEMOGLOBIN 8.5 g/dL (11.5-14.8); LYMPHOCYTES % (AUTO) 10.9 % (20.0-44.0); MEAN CORPUSCULAR HEMOGLOBIN 34 PG (26.0-33.0); MEAN CORPUSCULAR HGB CONC 34 g/dl (31.0-36.0); MEAN CORPUSCULAR VOLUME 101 fL (82-100); MONOCYTES # (AUTO) 1.8 K/uL (0.1-1.30); MONOCYTES % (AUTO) 19.9 % (2.0-12.0); NEUTROPHILS # (AUTO) 5.9 K/uL (1.8-8.9); NEUTROPHILS % (AUTO) 65.8 % (43.0-81.0); PLATELET COUNT (AUTO) 87 K/uL (150-450); RED BLOOD CELL COUNT(AUTO) 2.51 MIL/uL (4.0-5.2)
[2023-02-24 08:09] LABS: ALANINE AMINOTRANSFERASE 19 U/L (12-78); ALBUMIN 2.6 g/dL (3.4-5.0); ALKALINE PHOSPHATASE 62 U/L (46-116); ASPARTATE AMINOTRANSFERASE 30 U/L (15-37); BILIRUBIN,TOTAL 2.6 mg/dL (0.2-1.0); CARBON DIOXIDE 28 mmol/L (21-32); CHLORIDE 101 mmol/L (98-107); CREATININE 2.9 mg/dL (0.6-1.3); GLUCOSE 209 mg/dL (74-106); POTASSIUM 3.6 mmol/L (3.5-5.1); SODIUM SERUM 135 mmol/L (136-145); TOTAL PROTEIN, SERUM 4.7 g/dL (6.4-8.2); UREA NITROGEN, BLOOD 22 mg/dL (7-18)
[2023-02-24] MEDS: BENZONATATE 100 MG CAPSULE PO SCH ×2 (08:52→12:06)
[2023-02-24] MEDS: FERROUS SULFATE (325 MG) 325 MG/TAB TABLET GT SCH (08:53)
[2023-02-24] MEDS: SUCRALFATE 1 G TABLET GT SCH ×2 (08:53→12:06)
[2023-02-24] MEDS: FAMOTIDINE (20 MG) 20 MG TABLET GT SCH (08:57)
[2023-02-24] MEDS: PANTOPRAZOLE 40 MG/PACK PACK GT SCH (08:57)
[2023-02-24] MEDS: RIFAXIMIN 550 MG TABLET PO SCH (08:57)
[2023-02-24] MEDS: CHOLECALCIFEROL 1,000 UNIT TABLET (VIT D3) GT SCH (08:57)
[2023-02-24] MEDS: LACTULOSE 10 G/15 ML UDC (PYXIS) PO SCH (08:58)
[2023-02-24 08:59] VITALS: BP 106/59
[2023-02-24] MEDS: DOXAZOSIN MESYLATE (1 MG) 1 MG TABLET GT SCH (08:59)
[2023-02-24] MEDS: METOPROLOL SUCCINATE 25 MG TAB.SR.24H GT SCH (08:59)
[2023-02-24 11:53] LABS: BASOPHILS % (MANUAL) 0 % (0.0-2.0); EOSINOPHILS % (MANUAL) 2 % (0-4); LYMPHOCYTES % (MANUAL) 9 % (16-48); MONOCYTES % (MANUAL) 15 % (0-11.0); NEUTROPHILS % (MANUAL) 74 (42-76)
[2023-02-24 11:54] LABS: ANISOCYTOSIS 1+; PLATELET ESTIMATE DECREASED
== END 2023-02-24 12:45 | disposition home health service (06) | DRG 441 ==
LOC: ER 06:20 → TELE 13:03 → MED 02-03 10:44
PROVIDERS: ADMIT Internal Medicine
PROC: 0W993ZZ Drainage of Right Pleural Cavity, Percutaneous Approach (ICD-10-PCS; principal; 2023-02-08)
PROC: 0W993ZZ Drainage of Right Pleural Cavity, Percutaneous Approach (ICD-10-PCS; 2023-02-12)
PROC: 5A1D70Z Performance of Urinary Filtration, Intermittent, Less than 6 Hours Per Day (ICD-10-PCS; 2023-02-14)
PROC: 05HM33Z Insertion of Infusion Device into Right Internal Jugular Vein, Percutaneous Approach (ICD-10-PCS; 2023-02-14)
PROC: B543ZZA Ultrasonography of Right Jugular Veins, Guidance (ICD-10-PCS; 2023-02-14)
PROC: 05HY33Z Insertion of Infusion Device into Upper Vein, Percutaneous Approach (ICD-10-PCS; 2023-02-15)
PROC: 0JH63XZ Insertion of Tunneled Vascular Access Device into Chest Subcutaneous Tissue and Fascia, Percutaneous Approach (ICD-10-PCS; 2023-02-22)
PROC: 05HM33Z Insertion of Infusion Device into Right Internal Jugular Vein, Percutaneous Approach (ICD-10-PCS; 2023-02-22)
PROC: B543ZZA Ultrasonography of Right Jugular Veins, Guidance (ICD-10-PCS; 2023-02-22)
DX: K76.82 Hepatic encephalopathy (principal); J96.01 Acute respiratory failure with hypoxia; N17.0 Acute kidney failure with tubular necrosis; N18.6 End stage renal disease; J90 Pleural effusion, not elsewhere classified; E87.1 Hypo-osmolality and hyponatremia; I85.10 Secondary esophageal varices without bleeding; K76.6 Portal hypertension; N39.0 Urinary tract infection, site not specified; E87.20 Acidosis, unspecified; I12.0 Hypertensive chronic kidney disease with stage 5 chronic kidney disease or end stage renal disease; G90.8 Other disorders of autonomic nervous system; K75.81 Nonalcoholic steatohepatitis (NASH); E11.22 Type 2 diabetes mellitus with diabetic chronic kidney disease; I12.9 Hypertensive chronic kidney disease with stage 1 through stage 4 chronic kidney disease, or unspecified chronic kidney disease; N18.2 Chronic kidney disease, stage 2 (mild); Z20.822 Contact with and (suspected) exposure to COVID-19; Z88.0 Allergy status to penicillin; Z79.84 Long term (current) use of oral hypoglycemic drugs; Z79.4 Long term (current) use of insulin; Z79.899 Other long term (current) drug therapy; E78.5 Hyperlipidemia, unspecified; R74.01 Elevation of levels of liver transaminase levels; T50.1X5A Adverse effect of loop [high-ceiling] diuretics, initial encounter; T46.4X5A Adverse effect of angiotensin-converting-enzyme inhibitors, initial encounter; Y92.9 Unspecified place or not applicable; Z87.19 Personal history of other diseases of the digestive system; K74.60 Unspecified cirrhosis of liver; Z87.440 Personal history of urinary (tract) infections; D69.6 Thrombocytopenia, unspecified; D64.9 Anemia, unspecified; E87.5 Hyperkalemia; J98.01 Acute bronchospasm; K44.9 Diaphragmatic hernia without obstruction or gangrene; Z90.49 Acquired absence of other specified parts of digestive tract; R59.0 Localized enlarged lymph nodes; S90.821A Blister (nonthermal), right foot, initial encounter; X58.XXXA Exposure to other specified factors, initial encounter; E87.70 Fluid overload, unspecified; Z99.2 Dependence on renal dialysis
CPT/HCPCS: 36410; 36415; 36600; 70450-TC; 71045-TC; 71250-TC; 76705-TC; 80048-TC; 80053-TC; 80076-TC; 81001; 82140-TC; 82570-TC; 82607-TC; 82803-TC; 82962-TC; 83735-TC; 83880; 84100-TC; 84155-TC; 84300-TC; 84443-TC; 85025-TC; 85610-TC; 85730-TC; 86704; 86705; 86706; 86803; 87086-TC; 87340; 88108-TC; 88305-TC; 88311-TC; 89051-TC; 90935-TC; 93307-TC; 93880-TC; 93971-TC; 94799-TC; 97110-TC; 97116-TC; 97530-TC; A4216; A4223; C1750; C1757; C1769; C1894; C9113; G0378; J0690; J1644; J1815; J1940; J2405; J2704; J2920; J3475; J3490; J7030; J7040; J7060; P9047; Q9966

== ENCOUNTER 2023-04-01 11:57 | Inpatient (IN) | payer MEDICARE, OTHER ==
[~2023-04-01] VITALS: Ht 167.6 cm; Wt 79.4 kg
[~2023-04-01 11:57] MED LIST: ACET-2605 PO; ALLO100T PO; BUDE10.22 IH; CHOL100043 PO; DOXA2TAB2 PO; ESCI5TAB PO; FAMO40TA7 PO; FERR325T23 PO; FURO-145 PO; INSU100V11 SQ; LACT10SO3 PO; LIDO30AD10 TP; LISI40TA13 PO; LORA-259 PO; LORA10TA7 PO; MAGN100T PO; MECL-159 PO; METF-440 PO; METO25TA3 PO; SPIR50TA5 PO; SUCR1TAB PO
[2023-04-01 13:07] LABS: BASOPHILS # (AUTO) 0.2 K/uL (0.0-0.2); EOSINOPHILS # (AUTO) 0.2 K/uL (0.0-0.7); EOSINOPHILS % (AUTO) 0.8 % (0.0-6.0); HEMATOCRIT 36 % (33-45); HEMOGLOBIN 11.2 g/dL (11.5-14.8); LYMPHOCYTES # (AUTO) 1.6 K/uL (0.8-4.8); LYMPHOCYTES % (AUTO) 7.6 % (20.0-44.0); MEAN CORPUSCULAR HEMOGLOBIN 32 PG (26.0-33.0); MEAN CORPUSCULAR HGB CONC 31 g/dl (31.0-36.0); MEAN CORPUSCULAR VOLUME 103 fL (82-100); MONOCYTES # (AUTO) 1.9 K/uL (0.1-1.30); NEUTROPHILS # (AUTO) 17.6 K/uL (1.8-8.9); NEUTROPHILS % (AUTO) 81.6 % (43.0-81.0); PLATELET COUNT (AUTO) 149 K/uL (150-450); RED BLOOD CELL COUNT(AUTO) 3.45 MIL/uL (4.0-5.2); RED CELL DISTRIBUTION WIDTH 17.2 % (11.5-15.0); WHITE BLOOD COUNT (AUTO) 21.5 K/uL (4.3-11.0)
[2023-04-01 13:19] LABS: CALCIUM, SERUM 9.7 mg/dL (8.5-10.1); CARBON DIOXIDE 18 mmol/L (21-32); CHLORIDE 97 mmol/L (98-107); GLUCOSE 172 mg/dL (74-106); POTASSIUM 4.3 mmol/L (3.5-5.1); SODIUM SERUM 131 mmol/L (136-145); UREA NITROGEN, BLOOD 47 mg/dL (7-18)
[2023-04-01] MEDS ORDERED: INSU3INS10 SQ (13:25)
[2023-04-01 13:27] LABS: ALANINE AMINOTRANSFERASE 35 U/L (12-78); ALBUMIN 3.1 g/dL (3.4-5.0); ALKALINE PHOSPHATASE 136 U/L (46-116); ASPARTATE AMINOTRANSFERASE 49 U/L (15-37); BILIRUBIN,DIRECT 1.6 mg/dL (0.0-0.2); BILIRUBIN,TOTAL 3.7 mg/dL (0.2-1.0); LIPASE 323 U/L (16-77); TOTAL PROTEIN, SERUM 6.5 g/dL (6.4-8.2)
[2023-04-01 13:29] LABS: SERUM AMMONIA 50 umol/L (11-32)
[2023-04-01 13:30] LABS: BAND % (MANUAL) 1 % (0.0-5.0); EOSINOPHILS % (MANUAL) 1 % (0-4); LYMPHOCYTES % (MANUAL) 11 % (16-48); MONOCYTES % (MANUAL) 8 % (0-11.0); NEUTROPHILS % (MANUAL) 79 (42-76); PLATELET ESTIMATE ADEQUATE
[2023-04-01 13:31] LABS: ANISOCYTOSIS 1+; HYPOCHROMASIA 1+; OVALOCYTES FEW
[2023-04-01] MEDS ORDERED: LEVOFLOXACIN 750 MG /D5W 150ML PIGGYBACK IV ONE (14:00)
[2023-04-01] MEDS: VANCOMYCIN 1 GM in IV D5W 250 ML IV ONE (14:10)
[2023-04-01] MEDS: LEVOFLOXACIN 750 MG /D5W 150ML 750 MG in PREMIX 1 EA IV ONE (15:30)
[2023-04-01 15:38] LABS: INR 1.41 (0.91-1.10); PARTIAL THROMBOPLASTIN TIME 27.3 SEC (24.3-34.3); PROTHROMBIN TIME 14.6 SECS (9.2-11.1)
[2023-04-01 15:40] LABS: APPEARANCE,URINE CLOUDY (CLEAR); BILIRUBIN,URINE 2+ (NEGATIVE); BLOOD, URINE 2+ Ery/uL (NEGATIVE); COLOR,URINE YELLOW (YELLOW); KETONES,URINE 1+ mg/dL (NEGATIVE); LEUKOCYTE ESTERASE ,URINE 2+ (NEGATIVE); NITRITE, URINE NEGATIVE (NEGATIVE); PH,URINE 5.5 (5.0-8.0); PROTEIN,URINE 1+ mg/dl (NEGATIVE); UGLUCOSE NEGATIVE (NEGATIVE)
[2023-04-01 15:48] LABS: ADD URINE CULTURE YES; BACTERIA,URINE 1+ /HPF (None Seen); SQUAMOUS EPITHELIAL CELL,UR 0-2 /HPF (None Seen)
[2023-04-01 16:00] VITALS: BP 118/61; TEMP 99.9; O2SAT 100
[2023-04-01] MEDS ORDERED: MAGNESIUM HYDROXIDE 30 ML UDC PO PRN (17:00)
[2023-04-01] MEDS ORDERED: ONDANSETRON HCL/PF 4 MG/2 ML VIAL IVP PRN (17:00)
[2023-04-01] MEDS ORDERED: ZOLPIDEM TARTRATE 5 MG TABLET PO PRN (17:00)
[2023-04-01] MEDS ORDERED: Z GUARD REMEDY 4 OZ OINT TP PRN (17:00)
[2023-04-01] MEDS ORDERED: MAG HYDROX/AL HYDROX/SIMETH 30 ML UDC PO PRN (17:00)
[2023-04-01] MEDS ORDERED: METOPROLOL SUCCINATE 25 MG TAB.SR.24H PO PRN (17:30)
[2023-04-01] MEDS ORDERED: LISINOPRIL (20MG) 20 MG TABLET PO PRN (18:00)
[2023-04-01] MEDS ORDERED: ESCITALOPRAM OXALATE (10 MG) 10 MG TABLET PO PRN (18:00)
[2023-04-01] MEDS: ENOXAPARIN SODIUM 30 MG/0.3 ML DISP.SYRIN SQ SCH (18:01)
[2023-04-01] MEDS: SUCRALFATE 1 G TABLET PO PRN (18:01)
[2023-04-01] MEDS: METFORMIN 500 MG TABLET PO PRN (18:01)
[2023-04-01] MEDS: LACTULOSE 10 G/15 ML UDC (PYXIS) PO ONE (18:01)
[2023-04-01] MEDS: LORAZEPAM 1 MG TABLET PO PRN (18:01)
[2023-04-01] MEDS ORDERED: DEXTROSE 50%-WATER 50 ML DISP.SYRIN IV PRN (18:30)
[2023-04-01 20:00] VITALS: BP 130/49; TEMP 99.3; O2SAT 98
[2023-04-01] MEDS: BLOOD SUGAR DIAGNOSTIC 1 EACH STRIP IN SCH (22:38)
[2023-04-01] MEDS: INSULIN REGULAR, HUMAN 100 UNIT/ML 3 ML VIAL SQ PRN (22:41)
[2023-04-02] VITALS (7 sets, daily range): BP systolic 92–117; BP diastolic 45–74; TEMP 97.7–98.4; O2SAT 97–100
[2023-04-02] MEDS ORDERED: VANCOMYCIN 500 MG in IV D5W 100 ML IV PRN (06:00)
[2023-04-02] MEDS: CHOLECALCIFEROL 1,000 UNIT TABLET (VIT D3) PO SCH (08:17)
[2023-04-02] MEDS: PANTOPRAZOLE 40 MG VIAL IV SCH (08:17)
[2023-04-02 09:26] LABS: BASOPHILS # (AUTO) 0.1 K/uL (0.0-0.2); BASOPHILS % (AUTO) 0.4 % (0.0-2.0); EOSINOPHILS # (AUTO) 0.2 K/uL (0.0-0.7); EOSINOPHILS % (AUTO) 0.9 % (0.0-6.0); HEMATOCRIT 27 % (33-45); HEMOGLOBIN 8.8 g/dL (11.5-14.8); LYMPHOCYTES # (AUTO) 1.6 K/uL (0.8-4.8); LYMPHOCYTES % (AUTO) 7.6 % (20.0-44.0); MEAN CORPUSCULAR HEMOGLOBIN 33 PG (26.0-33.0); MEAN CORPUSCULAR HGB CONC 33 g/dl (31.0-36.0); MEAN CORPUSCULAR VOLUME 100 fL (82-100); MONOCYTES # (AUTO) 1.6 K/uL (0.1-1.30); MONOCYTES % (AUTO) 7.2 % (2.0-12.0); NEUTROPHILS # (AUTO) 17.9 K/uL (1.8-8.9); NEUTROPHILS % (AUTO) 83.9 % (43.0-81.0); PLATELET COUNT (AUTO) 120 K/uL (150-450); RED BLOOD CELL COUNT(AUTO) 2.67 MIL/uL (4.0-5.2); RED CELL DISTRIBUTION WIDTH 16.4 % (11.5-15.0); WHITE BLOOD COUNT (AUTO) 21.4 K/uL (4.3-11.0)
[2023-04-02 09:39] LABS: CALCIUM, SERUM 9.3 mg/dL (8.5-10.1); CARBON DIOXIDE 15 mmol/L (21-32); CHLORIDE 96 mmol/L (98-107); CREATININE 6.9 mg/dL (0.6-1.3); GLUCOSE 237 mg/dL (74-106); LIPASE 160 U/L (16-77); MAGNESIUM 2.7 mg/dL (1.8-2.4); PHOSPHORUS 7.4 mg/dL (2.5-4.9); POTASSIUM 3.8 mmol/L (3.5-5.1); SODIUM SERUM 128 mmol/L (136-145); UREA NITROGEN, BLOOD 57 mg/dL (7-18)
[2023-04-02 09:43] LABS: CHOLESTEROL 174 mg/dL (<200); HDL CHOLESTEROL 50 mg/dL (40-60); LDL 83 mg/dL (0-99); TRIGLYCERIDES 90 mg/dL (30-150)
[2023-04-02] MEDS ORDERED: ALBUTEROL FS 2.5 MG/0.5 ML VIAL.NEB NEB PRN (14:00)
[2023-04-02] MEDS ORDERED: BUDESONIDE RESPULE INH 0.5 MG/2 ML AMPUL.NEB NEB PRN (14:00)
[2023-04-02 15:43] LABS: ABG BASE EXCESS -7.9 mmol/L; ABG OXYGEN SATURATION 97.1 % (92.0-98.5); ABG PCO2 22.5 mmHg (35.0-45.0); ABG PH 7.437 (7.350-7.450); ABG PO2 98.8 mmHg (75.0-100.0); ABG TOTAL HEMOGLOBIN 9.8 G/dL (12.0-16.0); COHb 0.3 % (0.5-1.5); O2Hb 96.8 % (94.0-97.0); SITE, ABG Right Radial; VENT MODE, BG ROOM AIR @21 %
[2023-04-02] MEDS: VANCOMYCIN 1 GM in IV D5W 250 ML IV ONE (19:48)
[2023-04-02] MEDS: IPRATROPIUM NEB FS 0.5 MG/2.5 ML AMPUL.NEB NEB SCH (20:10)
[2023-04-03] VITALS (13 sets, daily range): BP systolic 92–132; BP diastolic 51–57; TEMP 97.5–98.2; O2SAT 96–100
[2023-04-03] MEDS: PANTOPRAZOLE 40 MG TABLET.DR PO SCH (08:54)
[2023-04-03] MEDS: LACTULOSE 10 G/15 ML UDC (PYXIS) PO SCH (09:44)
[2023-04-03 10:46] LABS: CALCIUM, SERUM 8.8 mg/dL (8.5-10.1); CARBON DIOXIDE 19 mmol/L (21-32); CHLORIDE 96 mmol/L (98-107); CREATININE 5.8 mg/dL (0.6-1.3); GLUCOSE 241 mg/dL (74-106); SODIUM SERUM 127 mmol/L (136-145); UREA NITROGEN, BLOOD 50 mg/dL (7-18)
[2023-04-03] MEDS: LEVOFLOXACIN 500 MG /D5W 100ML 500 MG in PREMIX 1 EA IV SCH (13:01)
[2023-04-03 15:25] LABS: BASOPHILS # (AUTO) 0.1 K/uL (0.0-0.2); BASOPHILS % (AUTO) 0.5 % (0.0-2.0); EOSINOPHILS # (AUTO) 0.2 K/uL (0.0-0.7); EOSINOPHILS % (AUTO) 1.5 % (0.0-6.0); HEMATOCRIT 28 % (33-45); HEMOGLOBIN 8.9 g/dL (11.5-14.8); LYMPHOCYTES # (AUTO) 1.2 K/uL (0.8-4.8); LYMPHOCYTES % (AUTO) 8.5 % (20.0-44.0); MEAN CORPUSCULAR HEMOGLOBIN 34 PG (26.0-33.0); MEAN CORPUSCULAR HGB CONC 32 g/dl (31.0-36.0); MEAN CORPUSCULAR VOLUME 104 fL (82-100); NEUTROPHILS # (AUTO) 10.7 K/uL (1.8-8.9); NEUTROPHILS % (AUTO) 75.5 % (43.0-81.0); PLATELET COUNT (AUTO) 83 K/uL (150-450); RED BLOOD CELL COUNT(AUTO) 2.65 MIL/uL (4.0-5.2); RED CELL DISTRIBUTION WIDTH 19.3 % (11.5-15.0); WHITE BLOOD COUNT (AUTO) 14.2 K/uL (4.3-11.0)
[2023-04-03 16:14] LABS: ANISOCYTOSIS 1+; LYMPHOCYTES % (MANUAL) 9 % (16-48); MONOCYTES % (MANUAL) 11 % (0-11.0); NEUTROPHILS % (MANUAL) 80 (42-76); PLATELET ESTIMATE DECREASED
[2023-04-03 16:15] LABS: OVALOCYTES 1+
[2023-04-03] MEDS: GUAIFENESIN/D-METHORPHAN HB 5 ML UDC PO PRN (17:49)
[2023-04-04] VITALS (11 sets, daily range): BP systolic 113–137; BP diastolic 46–57; TEMP 97.7–98.6; O2SAT 96–100
[2023-04-04 11:13] LABS: BASOPHILS # (AUTO) 0.1 K/uL (0.0-0.2); BASOPHILS % (AUTO) 0.6 % (0.0-2.0); EOSINOPHILS # (AUTO) 0.2 K/uL (0.0-0.7); EOSINOPHILS % (AUTO) 1.9 % (0.0-6.0); HEMATOCRIT 25 % (33-45); HEMOGLOBIN 8.4 g/dL (11.5-14.8); LYMPHOCYTES # (AUTO) 0.8 K/uL (0.8-4.8); LYMPHOCYTES % (AUTO) 6.8 % (20.0-44.0); MEAN CORPUSCULAR HEMOGLOBIN 33 PG (26.0-33.0); MEAN CORPUSCULAR HGB CONC 34 g/dl (31.0-36.0); MEAN CORPUSCULAR VOLUME 98 fL (82-100); MONOCYTES # (AUTO) 1.6 K/uL (0.1-1.30); NEUTROPHILS # (AUTO) 9.5 K/uL (1.8-8.9); NEUTROPHILS % (AUTO) 77.7 % (43.0-81.0); PLATELET COUNT (AUTO) 101 K/uL (150-450); RED BLOOD CELL COUNT(AUTO) 2.54 MIL/uL (4.0-5.2); RED CELL DISTRIBUTION WIDTH 18.1 % (11.5-15.0); WHITE BLOOD COUNT (AUTO) 12.3 K/uL (4.3-11.0)
[2023-04-04 11:21] LABS: CARBON DIOXIDE 17 mmol/L (21-32); CHLORIDE 93 mmol/L (98-107); GLUCOSE 251 mg/dL (74-106); POTASSIUM 3.8 mmol/L (3.5-5.1); SODIUM SERUM 127 mmol/L (136-145); UREA NITROGEN, BLOOD 59 mg/dL (7-18); VANCOMYCIN,TROUGH 18 ug/ml (10-20)
[2023-04-04] MEDS: MENTHOL/CETYLPYRD (CEPACOL) 1 LOZ LOZENGE PO PRN (16:18)
[2023-04-04] MEDS: ALBUMIN 25% 25 GM in PREMIX 1 EA IV PRN (17:39)
[2023-04-04] MEDS: VANCOMYCIN 500 MG in IV D5W 100 ML IV PRN (23:59)
[2023-04-05] VITALS (12 sets, daily range): BP systolic 110–128; BP diastolic 42–58; TEMP 97.5–98.6; O2SAT 95–100
[2023-04-05 07:27] LABS: BASOPHILS # (AUTO) 0.1 K/uL (0.0-0.2); BASOPHILS % (AUTO) 0.6 % (0.0-2.0); EOSINOPHILS # (AUTO) 0.2 K/uL (0.0-0.7); EOSINOPHILS % (AUTO) 2.2 % (0.0-6.0); HEMATOCRIT 23 % (33-45); HEMOGLOBIN 7.6 g/dL (11.5-14.8); LYMPHOCYTES # (AUTO) 0.7 K/uL (0.8-4.8); LYMPHOCYTES % (AUTO) 7.9 % (20.0-44.0); MEAN CORPUSCULAR HEMOGLOBIN 33 PG (26.0-33.0); MEAN CORPUSCULAR HGB CONC 33 g/dl (31.0-36.0); MEAN CORPUSCULAR VOLUME 100 fL (82-100); MONOCYTES # (AUTO) 1.4 K/uL (0.1-1.30); MONOCYTES % (AUTO) 15.6 % (2.0-12.0); NEUTROPHILS # (AUTO) 6.7 K/uL (1.8-8.9); NEUTROPHILS % (AUTO) 73.7 % (43.0-81.0); RED CELL DISTRIBUTION WIDTH 19.1 % (11.5-15.0)
[2023-04-05 07:51] LABS: PLATELET COUNT (AUTO) 25 K/uL (150-450)
[2023-04-05 08:00] LABS: CALCIUM, SERUM 8.9 mg/dL (8.5-10.1); CARBON DIOXIDE 18 mmol/L (21-32); CHLORIDE 94 mmol/L (98-107); CREATININE 6.3 mg/dL (0.6-1.3); GLUCOSE 206 mg/dL (74-106); POTASSIUM 3.7 mmol/L (3.5-5.1); SODIUM SERUM 128 mmol/L (136-145); UREA NITROGEN, BLOOD 52 mg/dL (7-18)
[2023-04-05 10:26] LABS: ANISOCYTOSIS 1+; BAND % (MANUAL) 2 % (0.0-5.0); BASOPHILS % (MANUAL) 0 % (0.0-2.0); EOSINOPHILS % (MANUAL) 3 % (0-4); LYMPHOCYTES % (MANUAL) 8 % (16-48); MONOCYTES % (MANUAL) 14 % (0-11.0); NEUTROPHILS % (MANUAL) 73 (42-76); OVALOCYTES 1+; PLATELET ESTIMATE DECREASED
[2023-04-05 11:51] LABS: BASOPHILS % (AUTO) 0.3 % (0.0-2.0); EOSINOPHILS # (AUTO) 0.2 K/uL (0.0-0.7); EOSINOPHILS % (AUTO) 2.2 % (0.0-6.0); HEMATOCRIT 23 % (33-45); HEMOGLOBIN 7.9 g/dL (11.5-14.8); LYMPHOCYTES # (AUTO) 0.5 K/uL (0.8-4.8); LYMPHOCYTES % (AUTO) 5.6 % (20.0-44.0); MEAN CORPUSCULAR HEMOGLOBIN 33 PG (26.0-33.0); MEAN CORPUSCULAR HGB CONC 34 g/dl (31.0-36.0); MEAN CORPUSCULAR VOLUME 99 fL (82-100); MONOCYTES # (AUTO) 1.3 K/uL (0.1-1.30); MONOCYTES % (AUTO) 14.2 % (2.0-12.0); NEUTROPHILS # (AUTO) 7.3 K/uL (1.8-8.9); NEUTROPHILS % (AUTO) 77.7 % (43.0-81.0); PLATELET COUNT (AUTO) 76 K/uL (150-450); RED BLOOD CELL COUNT(AUTO) 2.37 MIL/uL (4.0-5.2); RED CELL DISTRIBUTION WIDTH 17.9 % (11.5-15.0); WHITE BLOOD COUNT (AUTO) 9.4 K/uL (4.3-11.0)
[2023-04-05] MEDS: LEVOFLOXACIN (250MG) 250 MG TABLET PO SCH (14:07)
[2023-04-05] MEDS: INSULIN GLARGINE, 100 UNIT/ML CARTRIDGE SQ SCH (17:30)
[2023-04-06] VITALS (10 sets, daily range): BP systolic 105–130; BP diastolic 30–55; TEMP 98–98.4; O2SAT 97–100
[2023-04-06 07:54] LABS: BASOPHILS # (AUTO) 0.1 K/uL (0.0-0.2); BASOPHILS % (AUTO) 0.6 % (0.0-2.0); EOSINOPHILS # (AUTO) 0.3 K/uL (0.0-0.7); EOSINOPHILS % (AUTO) 2.5 % (0.0-6.0); HEMATOCRIT 25 % (33-45); HEMOGLOBIN 8.5 g/dL (11.5-14.8); LYMPHOCYTES % (AUTO) 9.2 % (20.0-44.0); MEAN CORPUSCULAR HEMOGLOBIN 34 PG (26.0-33.0); MEAN CORPUSCULAR HGB CONC 34 g/dl (31.0-36.0); MEAN CORPUSCULAR VOLUME 98 fL (82-100); MONOCYTES # (AUTO) 1.6 K/uL (0.1-1.30); MONOCYTES % (AUTO) 15.4 % (2.0-12.0); NEUTROPHILS # (AUTO) 7.7 K/uL (1.8-8.9); NEUTROPHILS % (AUTO) 72.3 % (43.0-81.0); PLATELET COUNT (AUTO) 86 K/uL (150-450); RED BLOOD CELL COUNT(AUTO) 2.54 MIL/uL (4.0-5.2); WHITE BLOOD COUNT (AUTO) 10.6 K/uL (4.3-11.0)
[2023-04-06 08:12] LABS: CALCIUM, SERUM 9.5 mg/dL (8.5-10.1); CARBON DIOXIDE 18 mmol/L (21-32); CHLORIDE 91 mmol/L (98-107); CREATININE 7.3 mg/dL (0.6-1.3); GLUCOSE 169 mg/dL (74-106); POTASSIUM 3.8 mmol/L (3.5-5.1); SODIUM SERUM 127 mmol/L (136-145); UREA NITROGEN, BLOOD 61 mg/dL (7-18)
[2023-04-06 11:18] LABS: ANISOCYTOSIS 1+; BASOPHILS % (MANUAL) 0 % (0.0-2.0); EOSINOPHILS % (MANUAL) 3 % (0-4); HYPOCHROMASIA 1+; LYMPHOCYTES % (MANUAL) 8 % (16-48); MONOCYTES % (MANUAL) 13 % (0-11.0); NEUTROPHILS % (MANUAL) 76 (42-76); PLATELET ESTIMATE DECREASED
[2023-04-07 01:30] VITALS: O2SAT 95
[2023-04-07 01:45] VITALS: O2SAT 100
[2023-04-07 07:00] VITALS: BP 128/55; TEMP 98.1; O2SAT 98
[2023-04-07 07:57] VITALS: O2SAT 98
[2023-04-07 07:59] LABS: CALCIUM, SERUM 8.8 mg/dL (8.5-10.1); CHLORIDE 95 mmol/L (98-107); CREATININE 6.7 mg/dL (0.6-1.3); GLUCOSE 158 mg/dL (74-106); POTASSIUM 3.6 mmol/L (3.5-5.1); SODIUM SERUM 131 mmol/L (136-145); UREA NITROGEN, BLOOD 49 mg/dL (7-18)
[2023-04-07 08:08] LABS: CARBON DIOXIDE 21 mmol/L (21-32)
[2023-04-07 08:11] VITALS: O2SAT 99
== END 2023-04-07 13:30 | disposition home health service (06) | DRG 871 ==
LOC: ER 12:53 → TELE 15:15 → MED 04-06 16:39
PROVIDERS: ADMIT Nurse Practitioner Acute Care; ATTEND Internal Medicine
PROC: 5A1D70Z Performance of Urinary Filtration, Intermittent, Less than 6 Hours Per Day (ICD-10-PCS; principal; 2023-04-02)
DX: A41.9 Sepsis, unspecified organism (principal); K85.90 Acute pancreatitis without necrosis or infection, unspecified; N18.6 End stage renal disease; N39.0 Urinary tract infection, site not specified; I12.0 Hypertensive chronic kidney disease with stage 5 chronic kidney disease or end stage renal disease; E44.0 Moderate protein-calorie malnutrition; E87.1 Hypo-osmolality and hyponatremia; E87.20 Acidosis, unspecified; J90 Pleural effusion, not elsewhere classified; J98.11 Atelectasis; I85.00 Esophageal varices without bleeding; D69.59 Other secondary thrombocytopenia; E78.5 Hyperlipidemia, unspecified; E87.70 Fluid overload, unspecified; E88.09 Other disorders of plasma-protein metabolism, not elsewhere classified; F32.A Depression, unspecified; K74.60 Unspecified cirrhosis of liver; K76.82 Hepatic encephalopathy; Z79.4 Long term (current) use of insulin; Z85.3 Personal history of malignant neoplasm of breast; Z88.0 Allergy status to penicillin; Z90.13 Acquired absence of bilateral breasts and nipples; Z90.49 Acquired absence of other specified parts of digestive tract; Z99.2 Dependence on renal dialysis; E11.22 Type 2 diabetes mellitus with diabetic chronic kidney disease; E66.3 Overweight; M89.8X9 Other specified disorders of bone, unspecified site; Z68.28 Body mass index [BMI] 28.0-28.9, adult; G90.8 Other disorders of autonomic nervous system; D63.1 Anemia in chronic kidney disease; R74.01 Elevation of levels of liver transaminase levels; B96.1 Klebsiella pneumoniae [K. pneumoniae] as the cause of diseases classified elsewhere; K75.81 Nonalcoholic steatohepatitis (NASH); Z79.84 Long term (current) use of oral hypoglycemic drugs; R19.7 Diarrhea, unspecified
CPT/HCPCS: 36415; 36600; 71045-TC; 80048-TC; 80061-TC; 80076-TC; 80202-TC; 81001; 82140-TC; 82962-TC; 83690-TC; 83735-TC; 84100-TC; 84484-TC; 85025-TC; 85730-TC; 87040-TC; 87086-TC; 90935-TC; 94799-TC; 97110-TC; 97116-TC; 97530-TC; A4216; A4223; C9113; G0378; J1650; J1815; J1956; J3370; J7050; J7060; P9047

== ENCOUNTER 2023-04-24 05:16 | Inpatient (IN) | payer MEDICARE, OTHER ==
[~2023-04-24] VITALS: Ht 144.8 cm; Wt 85.7 kg
[2023-04-24] VITALS (17 sets, daily range): BP systolic 87–125; BP diastolic 45–77; TEMP 97.4–98.7; O2SAT 96–100
[~2023-04-24 05:16] MED LIST changes: -ACET-2605 PO; -ALLO100T PO; -DOXA2TAB2 PO; -FERR325T23 PO; -FURO-145 PO; -INSU100V11 SQ; +INSU3INS10 SQ; -LIDO30AD10 TP; -LORA10TA7 PO; -MAGN100T PO; -MECL-159 PO; -SPIR50TA5 PO
[2023-04-24] MEDS ORDERED: PANTOPRAZOLE 40 MG VIAL ONE (06:13)
[2023-04-24] MEDS ORDERED: ONDANSETRON HCL/PF 4 MG/2 ML VIAL ONE (06:13)
[2023-04-24] MEDS: PANTOPRAZOLE 40 MG VIAL IV ONE (06:28)
[2023-04-24] MEDS: ONDANSETRON HCL/PF - ER 4 MG/2 ML VIAL IV ONE (06:28)
[2023-04-24 06:30] LABS: CALCIUM, SERUM 9.3 mg/dL (8.5-10.1); CARBON DIOXIDE 20 mmol/L (21-32); CHLORIDE 102 mmol/L (98-107); CREATININE 6.5 mg/dL (0.6-1.3); GLUCOSE 199 mg/dL (74-106); POTASSIUM 4.9 mmol/L (3.5-5.1); SODIUM SERUM 136 mmol/L (136-145); UREA NITROGEN, BLOOD 51 mg/dL (7-18)
[2023-04-24 06:32] LABS: BASOPHILS # (AUTO) 0.1 K/uL (0.0-0.2); BASOPHILS % (AUTO) 0.7 % (0.0-2.0); EOSINOPHILS # (AUTO) 0.1 K/uL (0.0-0.7); HEMATOCRIT 25 % (33-45); HEMOGLOBIN 7.9 g/dL (11.5-14.8); LYMPHOCYTES # (AUTO) 0.6 K/uL (0.8-4.8); LYMPHOCYTES % (AUTO) 4.3 % (20.0-44.0); MEAN CORPUSCULAR HEMOGLOBIN 32 PG (26.0-33.0); MEAN CORPUSCULAR HGB CONC 32 g/dl (31.0-36.0); MEAN CORPUSCULAR VOLUME 101 fL (82-100); MONOCYTES # (AUTO) 1.7 K/uL (0.1-1.30); MONOCYTES % (AUTO) 12.4 % (2.0-12.0); NEUTROPHILS # (AUTO) 11.4 K/uL (1.8-8.9); NEUTROPHILS % (AUTO) 81.6 % (43.0-81.0); PLATELET COUNT (AUTO) 148 K/uL (150-450); RED BLOOD CELL COUNT(AUTO) 2.48 MIL/uL (4.0-5.2)
[2023-04-24 06:36] LABS: ALANINE AMINOTRANSFERASE 28 U/L (12-78); ALBUMIN 2.2 g/dL (3.4-5.0); ALKALINE PHOSPHATASE 121 U/L (46-116); ASPARTATE AMINOTRANSFERASE 34 U/L (15-37); BILIRUBIN,TOTAL 2.8 mg/dL (0.2-1.0); TOTAL PROTEIN, SERUM 4.7 g/dL (6.4-8.2)
[2023-04-24 06:39] LABS: INR 1.55 (0.91-1.10)
[2023-04-24 06:41] LABS: LACTIC ACID 4.5 mmol/L (0.4-2.0)
[2023-04-24] MEDS: IV NS 0.9% 1,000 ML BAG IV ONE (06:50)
[2023-04-24] MEDS: OCTREOTIDE 50 MCG in IV NS 0.9% 50 ML IJ ONE (06:50)
[2023-04-24] MEDS ORDERED: LEVOFLOXACIN 750 MG /D5W 150ML 150 ML IV ONE (07:06)
[2023-04-24] MEDS: LEVOFLOXACIN 750 MG /D5W 150ML PIGGYBACK IV ONE (07:15)
[2023-04-24] MEDS ORDERED: Z GUARD REMEDY 4 OZ OINT TP PRN (08:30)
[2023-04-24] MEDS ORDERED: MAGNESIUM HYDROXIDE 30 ML UDC PO PRN (08:30)
[2023-04-24] MEDS ORDERED: CEFEPIME 1 GM VIAL IM SCH (09:00)
[2023-04-24] MEDS: VANCOMYCIN 1 GM in IV D5W 250 ML IV ONE (09:28)
[2023-04-24] MEDS: PANTOPRAZOLE 40 MG VIAL IV SCH (09:28)
[2023-04-24 10:26] LABS: BILIRUBIN,DIRECT 1.1 mg/dL (0.0-0.2)
[2023-04-24] MEDS ORDERED: FAMOTIDINE (20 MG) 20 MG TABLET PO PRN (10:30)
[2023-04-24] MEDS ORDERED: METOPROLOL SUCCINATE 25 MG TAB.SR.24H PO PRN (10:30)
[2023-04-24] MEDS ORDERED: SUCRALFATE 1 G TABLET PO PRN (10:30)
[2023-04-24 10:33] LABS: LACTIC ACID REFLEX 4.2 mmol/L (0.4-1.9)
[2023-04-24] MEDS: CEFEPIME 1 GM in IV D5W 50 ML IV SCH (10:57)
[2023-04-24] MEDS ORDERED: DEXTROSE 50%-WATER 50 ML DISP.SYRIN IV PRN (12:00)
[2023-04-24] MEDS: BLOOD SUGAR DIAGNOSTIC 1 EACH STRIP IN SCH (12:27)
[2023-04-24] MEDS: MORPHINE SULFATE INJ 2 MG/ML DISP.SYRIN IV PRN ×2 (12:31→18:37)
[2023-04-24] MEDS: LACTULOSE 10 G/15 ML UDC (PYXIS) PO SCH (12:31)
[2023-04-24] MEDS: ONDANSETRON HCL/PF 4 MG/2 ML VIAL IVP PRN (12:33)
[2023-04-24] MEDS ORDERED: HYDROCORTISONE SOD SUCCINATE 100 MG/2 ML VIAL IV SCH (13:00)
[2023-04-24 13:25] LABS: HEMOGLOBIN 7.4 g/dL (11.5-14.8)
[2023-04-24] MEDS: PEG 3350/NA SULF,BICARB,CL/KCL 4,000 ML BOTTLE PO ONE (21:55)
[2023-04-24] MEDS: OCTREOTIDE 1,250 MCG in IV NS 0.9% 247.5 ML IV SCH (22:32)
[2023-04-25] VITALS: BP_SYST 123; BP_DIAS 61; BP_DIAS 62; TEMP 97.8; TEMP 97.9; O2SAT 100
[2023-04-25 04:00] VITALS: BP 124/62; TEMP 98; O2SAT 99
[2023-04-25 07:25] LABS: BASOPHILS % (AUTO) 0.1 % (0.0-2.0); EOSINOPHILS # (AUTO) 0.2 K/uL (0.0-0.7); HEMATOCRIT 32 % (33-45); HEMOGLOBIN 10.4 g/dL (11.5-14.8); LYMPHOCYTES # (AUTO) 0.8 K/uL (0.8-4.8); LYMPHOCYTES % (AUTO) 4.8 % (20.0-44.0); MEAN CORPUSCULAR HEMOGLOBIN 31 PG (26.0-33.0); MEAN CORPUSCULAR HGB CONC 32 g/dl (31.0-36.0); MEAN CORPUSCULAR VOLUME 97 fL (82-100); MONOCYTES % (AUTO) 12.3 % (2.0-12.0); NEUTROPHILS # (AUTO) 13.3 K/uL (1.8-8.9); NEUTROPHILS % (AUTO) 81.8 % (43.0-81.0); PLATELET COUNT (AUTO) 134 K/uL (150-450); RED BLOOD CELL COUNT(AUTO) 3.32 MIL/uL (4.0-5.2); RED CELL DISTRIBUTION WIDTH 18.5 % (11.5-15.0); WHITE BLOOD COUNT (AUTO) 16.2 K/uL (4.3-11.0)
[2023-04-25 07:38] LABS: SERUM AMMONIA 52 umol/L (11-32)
[2023-04-25 08:00] VITALS: BP 111/39; TEMP 97.8; O2SAT 98
[2023-04-25 08:07] LABS: ALANINE AMINOTRANSFERASE 30 U/L (12-78); ALKALINE PHOSPHATASE 99 U/L (46-116); ASPARTATE AMINOTRANSFERASE 32 U/L (15-37); BILIRUBIN,TOTAL 3.9 mg/dL (0.2-1.0); CALCIUM, SERUM 9.6 mg/dL (8.5-10.1); CARBON DIOXIDE 17 mmol/L (21-32); CHLORIDE 102 mmol/L (98-107); CREATININE 6.8 mg/dL (0.6-1.3); GLUCOSE 170 mg/dL (74-106); MAGNESIUM 2.8 mg/dL (1.8-2.4); POTASSIUM 5.4 mmol/L (3.5-5.1); SODIUM SERUM 134 mmol/L (136-145); TOTAL PROTEIN, SERUM 4.8 g/dL (6.4-8.2); UREA NITROGEN, BLOOD 67 mg/dL (7-18)
[2023-04-25] MEDS: INSULIN REGULAR, HUMAN 100 UNIT/ML 3 ML VIAL SQ PRN (08:24)
[2023-04-25 12:00] VITALS: BP 105/55; TEMP 97.9; O2SAT 95
[2023-04-25 13:25] LABS: HEMOGLOBIN 10.4 g/dL (11.5-14.8)
[2023-04-25] MEDS ORDERED: ANESTHESIA TRAY IN PYXIS 1 EA TRAY MC ONE (14:41)
[2023-04-25 16:00] VITALS: BP 115/55; TEMP 97.9; O2SAT 95
[2023-04-25 20:00] VITALS: BP 111/55; TEMP 97.4; O2SAT 96
[2023-04-25] MEDS: VANCOMYCIN POST DIALYSIS 500MG IV PRN (22:12)
[2023-04-26] VITALS (9 sets, daily range): BP systolic 97–121; BP diastolic 40–61; TEMP 97.7–98.5; O2SAT 95–100
[2023-04-26] MEDS: PANTOPRAZOLE 40 MG/PACK PACK PO SCH (10:00)
[2023-04-26 11:18] LABS: BASOPHILS % (AUTO) 0.3 % (0.0-2.0); EOSINOPHILS # (AUTO) 0.3 K/uL (0.0-0.7); EOSINOPHILS % (AUTO) 2.2 % (0.0-6.0); HEMATOCRIT 29 % (33-45); HEMOGLOBIN 9.4 g/dL (11.5-14.8); LYMPHOCYTES # (AUTO) 0.5 K/uL (0.8-4.8); MEAN CORPUSCULAR HEMOGLOBIN 31 PG (26.0-33.0); MEAN CORPUSCULAR HGB CONC 33 g/dl (31.0-36.0); MEAN CORPUSCULAR VOLUME 97 fL (82-100); MONOCYTES # (AUTO) 1.6 K/uL (0.1-1.30); MONOCYTES % (AUTO) 11.9 % (2.0-12.0); NEUTROPHILS # (AUTO) 10.8 K/uL (1.8-8.9); NEUTROPHILS % (AUTO) 81.6 % (43.0-81.0); PLATELET COUNT (AUTO) 103 K/uL (150-450); RED CELL DISTRIBUTION WIDTH 18.3 % (11.5-15.0); WHITE BLOOD COUNT (AUTO) 13.2 K/uL (4.3-11.0)
[2023-04-26 12:51] LABS: HEMOGLOBIN 9.6 g/dL (11.5-14.8)
[2023-04-26] MEDS: ZOLPIDEM TARTRATE 5 MG TABLET PO PRN (23:14)
[2023-04-27] VITALS (59 sets, daily range): BP systolic 60–137; BP diastolic 41–104; TEMP 97.7–98.5; O2SAT 77–100
[2023-04-27 05:22] LABS: CALCIUM, SERUM 9.2 mg/dL (8.5-10.1); CARBON DIOXIDE 16 mmol/L (21-32); CHLORIDE 99 mmol/L (98-107); GLUCOSE 152 mg/dL (74-106); POTASSIUM 5.3 mmol/L (3.5-5.1); SODIUM SERUM 133 mmol/L (136-145); UREA NITROGEN, BLOOD 58 mg/dL (7-18)
[2023-04-27 05:46] LABS: PHOSPHORUS 8.8 mg/dL (2.5-4.9)
[2023-04-27] MEDS: SODIUM POLYSTYRENE SULF. PWD 15 GM UDC PO ONE (08:49)
[2023-04-27] MEDS ORDERED: PHYTONADIONE 5 MG TABLET PO ONE (09:00)
[2023-04-27] MEDS: PHYTONADIONE INJ 10 MG/1 ML AMPUL SQ ONE (09:05)
[2023-04-27 09:19] LABS: BASOPHILS % (AUTO) 0.1 % (0.0-2.0); EOSINOPHILS # (AUTO) 0.4 K/uL (0.0-0.7); EOSINOPHILS % (AUTO) 3.3 % (0.0-6.0); HEMATOCRIT 31 % (33-45); HEMOGLOBIN 10.1 g/dL (11.5-14.8); LYMPHOCYTES % (AUTO) 7.6 % (20.0-44.0); MEAN CORPUSCULAR HEMOGLOBIN 31 PG (26.0-33.0); MEAN CORPUSCULAR HGB CONC 32 g/dl (31.0-36.0); MEAN CORPUSCULAR VOLUME 97 fL (82-100); MONOCYTES # (AUTO) 2.2 K/uL (0.1-1.30); MONOCYTES % (AUTO) 16.6 % (2.0-12.0); NEUTROPHILS # (AUTO) 9.8 K/uL (1.8-8.9); NEUTROPHILS % (AUTO) 72.4 % (43.0-81.0); PLATELET COUNT (AUTO) 100 K/uL (150-450); RED BLOOD CELL COUNT(AUTO) 3.23 MIL/uL (4.0-5.2); WHITE BLOOD COUNT (AUTO) 13.5 K/uL (4.3-11.0)
[2023-04-27 09:32] LABS: INR 1.6 (0.91-1.10); PROTHROMBIN TIME 16.4 SECS (9.2-11.1)
[2023-04-27] MEDS: PHENYLEPHRINE 50 MG in IV NS 0.9% 245 ML IV PRN (10:04)
[2023-04-27] MEDS: LINEZOLID RTU BAG 600 MG in PREMIX 1 EA IV SCH (12:33)
[2023-04-27 13:14] LABS: ABG BASE EXCESS 0.3 mmol/L; ABG OXYGEN SATURATION 98.5 % (92.0-98.5); ABG PCO2 34.6 mmHg (35.0-45.0); ABG PH 7.455 (7.350-7.450); ABG PO2 125.4 mmHg (75.0-100.0); ABG TOTAL HEMOGLOBIN 11.8 G/dL (12.0-16.0); COHb 0.4 % (0.5-1.5); MetHb 0.4 % (0.0-1.5); O2Hb 97.7 % (94.0-97.0); SITE, ABG Right Brachial; VENT MODE, BG 6LNC
[2023-04-27 15:08] LABS: PROTEIN, BODY FLUID 0.2 G/DL
[2023-04-27 16:30] LABS: APPEARANCE,SPUN,BODY FLUID HAZY (CLEAR)
[2023-04-27 16:33] LABS: TOTAL VOLUME,BODY FLUID 1610 mL
[2023-04-27 16:34] LABS: MACROPHAGES, BODY FLUID 33; POLYNUCLEAR, BODY FLUID 11 % (0-25); WBC, BODY FLUID 442 /cu. mm. (0-200)
[2023-04-27 16:35] LABS: MONOCYTES,BODY FLUID 27 %
[2023-04-27] MEDS: CODEINE/PROMETHAZINE HCL 5 ML UDC PO PRN (23:28)
[2023-04-27] MEDS: CODEINE/PROMETHAZINE HCL 5 ML UDC ONE (23:29)
[2023-04-28] VITALS (88 sets, daily range): BP systolic 83–151; BP diastolic 43–87; TEMP 97.7–98.5; O2SAT 95–100
[2023-04-28] MEDS: IV NS 0.9% 250 ML IV PRN (00:19)
[2023-04-28 09:38] LABS: BASOPHILS # (AUTO) 0.1 K/uL (0.0-0.2); BASOPHILS % (AUTO) 0.4 % (0.0-2.0); EOSINOPHILS # (AUTO) 0.4 K/uL (0.0-0.7); EOSINOPHILS % (AUTO) 3.3 % (0.0-6.0); HEMATOCRIT 28 % (33-45); HEMOGLOBIN 9.2 g/dL (11.5-14.8); LYMPHOCYTES # (AUTO) 1.1 K/uL (0.8-4.8); LYMPHOCYTES % (AUTO) 8.8 % (20.0-44.0); MEAN CORPUSCULAR HEMOGLOBIN 32 PG (26.0-33.0); MEAN CORPUSCULAR HGB CONC 33 g/dl (31.0-36.0); MEAN CORPUSCULAR VOLUME 97 fL (82-100); MONOCYTES # (AUTO) 1.9 K/uL (0.1-1.30); MONOCYTES % (AUTO) 14.8 % (2.0-12.0); NEUTROPHILS # (AUTO) 9.4 K/uL (1.8-8.9); NEUTROPHILS % (AUTO) 72.7 % (43.0-81.0); PLATELET COUNT (AUTO) 78 K/uL (150-450); RED CELL DISTRIBUTION WIDTH 17.8 % (11.5-15.0)
[2023-04-28 10:58] LABS: NEUTROPHILS % (MANUAL) 76 (42-76)
[2023-04-28 10:59] LABS: ANISOCYTOSIS 1+; BASOPHILS % (MANUAL) 0 % (0.0-2.0); EOSINOPHILS % (MANUAL) 2 % (0-4); LYMPHOCYTES % (MANUAL) 10 % (16-48); MONOCYTES % (MANUAL) 12 % (0-11.0); PLATELET ESTIMATE DECREASED
[2023-04-28 16:22] LABS: CALCIUM, SERUM 8.2 mg/dL (8.5-10.1); CARBON DIOXIDE 27 mmol/L (21-32); CHLORIDE 99 mmol/L (98-107); CREATININE 3.6 mg/dL (0.6-1.3); GLUCOSE 263 mg/dL (74-106); SODIUM SERUM 135 mmol/L (136-145); UREA NITROGEN, BLOOD 24 mg/dL (7-18)
[2023-04-28 16:31] LABS: POTASSIUM 2.8 mmol/L (3.5-5.1)
[2023-04-28] MEDS: POTASSIUM CHLORIDE 20 MEQ TAB.PRT.SR PO ONE (20:13)
[2023-04-29] VITALS (40 sets, daily range): BP systolic 85–144; BP diastolic 32–86; TEMP 97.6–97.8; O2SAT 85–100
[2023-04-29 05:16] LABS: CALCIUM, SERUM 9.3 mg/dL (8.5-10.1); CARBON DIOXIDE 25 mmol/L (21-32); CHLORIDE 98 mmol/L (98-107); CREATININE 4.4 mg/dL (0.6-1.3); GLUCOSE 198 mg/dL (74-106); MAGNESIUM 2.2 mg/dL (1.8-2.4); PHOSPHORUS 6.1 mg/dL (2.5-4.9); POTASSIUM 3.6 mmol/L (3.5-5.1); SODIUM SERUM 135 mmol/L (136-145); UREA NITROGEN, BLOOD 33 mg/dL (7-18)
[2023-04-29] MEDS: ACETAMINOPHEN 325 MG TABLET PO PRN (08:33)
[2023-04-29 11:01] LABS: BASOPHILS % (AUTO) 0.2 % (0.0-2.0); EOSINOPHILS # (AUTO) 0.3 K/uL (0.0-0.7); EOSINOPHILS % (AUTO) 2.3 % (0.0-6.0); HEMATOCRIT 34 % (33-45); LYMPHOCYTES # (AUTO) 0.7 K/uL (0.8-4.8); LYMPHOCYTES % (AUTO) 5.5 % (20.0-44.0); MEAN CORPUSCULAR HEMOGLOBIN 32 PG (26.0-33.0); MEAN CORPUSCULAR HGB CONC 32 g/dl (31.0-36.0); MEAN CORPUSCULAR VOLUME 98 fL (82-100); MONOCYTES # (AUTO) 1.8 K/uL (0.1-1.30); NEUTROPHILS # (AUTO) 10.2 K/uL (1.8-8.9); PLATELET COUNT (AUTO) 81 K/uL (150-450); RED BLOOD CELL COUNT(AUTO) 3.49 MIL/uL (4.0-5.2); RED CELL DISTRIBUTION WIDTH 20.2 % (11.5-15.0); WHITE BLOOD COUNT (AUTO) 13.1 K/uL (4.3-11.0)
[2023-04-29] MEDS: ALBUTEROL HALF STRENGTH 1.25 MG/3 ML VIAL.NEB NEB SCH (11:42)
[2023-04-29] MEDS: IPRATROPIUM NEB FS 0.5 MG/2.5 ML AMPUL.NEB NEB SCH (11:42)
[2023-04-29] MEDS: methylPREDNISolone SOD SUCC 125 MG/2ML VIAL IV STA (11:49)
[2023-04-29] MEDS: LORAZEPAM 0.5 MG TABLET PO PRN (11:49)
[2023-04-29 12:06] LABS: BAND % (MANUAL) 1 % (0.0-5.0); EOSINOPHILS % (MANUAL) 5 % (0-4); LYMPHOCYTES % (MANUAL) 6 % (16-48); MONOCYTES % (MANUAL) 11 % (0-11.0); NEUTROPHILS % (MANUAL) 77 (42-76); PLATELET ESTIMATE DECREASED
[2023-04-29 12:07] LABS: ANISOCYTOSIS 1+
[2023-04-29] MEDS: ALBUMIN 25% 25 GM in PREMIX 1 EA IV SCH (18:01)
[2023-04-29] MEDS: MAG HYDROX/AL HYDROX/SIMETH 30 ML UDC PO PRN (21:10)
[2023-04-30] VITALS (52 sets, daily range): BP systolic 82–134; BP diastolic 45–101; TEMP 97–98.6; O2SAT 85–100
[2023-04-30 04:09] LABS: BASOPHILS % (AUTO) 0.1 % (0.0-2.0); HEMATOCRIT 28 % (33-45); HEMOGLOBIN 9.2 g/dL (11.5-14.8); LYMPHOCYTES # (AUTO) 0.3 K/uL (0.8-4.8); LYMPHOCYTES % (AUTO) 3.3 % (20.0-44.0); MEAN CORPUSCULAR HEMOGLOBIN 32 PG (26.0-33.0); MEAN CORPUSCULAR HGB CONC 33 g/dl (31.0-36.0); MEAN CORPUSCULAR VOLUME 97 fL (82-100); MONOCYTES # (AUTO) 0.5 K/uL (0.1-1.30); MONOCYTES % (AUTO) 5.1 % (2.0-12.0); NEUTROPHILS # (AUTO) 9.2 K/uL (1.8-8.9); NEUTROPHILS % (AUTO) 91.5 % (43.0-81.0); PLATELET COUNT (AUTO) 72 K/uL (150-450); RED BLOOD CELL COUNT(AUTO) 2.85 MIL/uL (4.0-5.2); RED CELL DISTRIBUTION WIDTH 19.3 % (11.5-15.0)
[2023-04-30 04:26] LABS: CALCIUM, SERUM 9.4 mg/dL (8.5-10.1); CARBON DIOXIDE 26 mmol/L (21-32); CHLORIDE 96 mmol/L (98-107); CREATININE 3.8 mg/dL (0.6-1.3); GLUCOSE 236 mg/dL (74-106); MAGNESIUM 2.2 mg/dL (1.8-2.4); PHOSPHORUS 6.4 mg/dL (2.5-4.9); POTASSIUM 3.7 mmol/L (3.5-5.1); SODIUM SERUM 136 mmol/L (136-145); UREA NITROGEN, BLOOD 28 mg/dL (7-18)
[2023-04-30 05:44] LABS: ANISOCYTOSIS 1+; BAND % (MANUAL) 3 % (0.0-5.0); BASOPHILS % (MANUAL) 0 % (0.0-2.0); EOSINOPHILS % (MANUAL) 4 % (0-4); LYMPHOCYTES % (MANUAL) 4 % (16-48); MONOCYTES % (MANUAL) 10 % (0-11.0); NEUTROPHILS % (MANUAL) 79 (42-76); PLATELET ESTIMATE DECREASED
[2023-04-30 12:07] LABS: INR 1.88 (0.91-1.10); PARTIAL THROMBOPLASTIN TIME 34.3 SEC (24.3-34.3); PROTHROMBIN TIME 19.1 SECS (9.2-11.1)
[2023-04-30] MEDS: QUETIAPINE FUMARATE 25 MG TABLET PO SCH (13:14)
[2023-04-30] MEDS: PHYTONADIONE INJ 10 MG/1 ML AMPUL SQ ONE (16:10)
[2023-04-30] MEDS: ALBUMIN 25% 25 GM in PREMIX 1 EA IV PRN (16:37)
[2023-04-30] MEDS: diphenhydrAMINE HCL 50 MG/ML VIAL IV ONE (17:00)
[2023-04-30] MEDS: ACETAMINOPHEN 325 MG TABLET PO ONE (17:00)
[2023-04-30 19:30] LABS: D-DIMER 11.12 mg/L(FEU (0.17-0.50)
[2023-04-30 19:36] LABS: THYROID STIMULATING HORMONE 0.542 uIU/mL (0.358-3.74)
[2023-04-30 22:40] LABS: RHEUMATOID FACTOR SCREEN NEGATIVE (NEGATIVE)
[2023-05-01] VITALS (80 sets, daily range): BP systolic 74–125; BP diastolic 31–105; TEMP 96.9–98.8; O2SAT 91–100
[2023-05-01] MEDS: diphenhydrAMINE HCL 50 MG/ML VIAL IV ONE (01:16)
[2023-05-01] MEDS: ACETAMINOPHEN 325 MG TABLET PO ONE (01:17)
[2023-05-01] MEDS: diphenhydrAMINE HCL 50 MG/ML VIAL ONE (01:22)
[2023-05-01] MEDS: ACETAMINOPHEN 650 MG/SUPP.RECT RC STA (01:58)
[2023-05-01 09:39] LABS: EOSINOPHILS % (AUTO) 0.3 % (0.0-6.0); HEMATOCRIT 23 % (33-45); HEMOGLOBIN 7.3 g/dL (11.5-14.8); LYMPHOCYTES # (AUTO) 0.5 K/uL (0.8-4.8); MEAN CORPUSCULAR HEMOGLOBIN 32 PG (26.0-33.0); MEAN CORPUSCULAR HGB CONC 32 g/dl (31.0-36.0); MEAN CORPUSCULAR VOLUME 98 fL (82-100); MONOCYTES # (AUTO) 0.9 K/uL (0.1-1.30); MONOCYTES % (AUTO) 6.2 % (2.0-12.0); NEUTROPHILS # (AUTO) 13.8 K/uL (1.8-8.9); NEUTROPHILS % (AUTO) 90.5 % (43.0-81.0); PLATELET COUNT (AUTO) 64 K/uL (150-450); RED BLOOD CELL COUNT(AUTO) 2.31 MIL/uL (4.0-5.2); RED CELL DISTRIBUTION WIDTH 19.4 % (11.5-15.0); WHITE BLOOD COUNT (AUTO) 15.3 K/uL (4.3-11.0)
[2023-05-01 09:47] LABS: CALCIUM, SERUM 10.5 mg/dL (8.5-10.1); CARBON DIOXIDE 30 mmol/L (21-32); CHLORIDE 96 mmol/L (98-107); CREATININE 3.3 mg/dL (0.6-1.3); GLUCOSE 204 mg/dL (74-106); POTASSIUM 3.3 mmol/L (3.5-5.1); SODIUM SERUM 137 mmol/L (136-145); UREA NITROGEN, BLOOD 31 mg/dL (7-18)
[2023-05-01 09:53] LABS: ALANINE AMINOTRANSFERASE 25 U/L (12-78); ALBUMIN 3.5 g/dL (3.4-5.0); ALKALINE PHOSPHATASE 89 U/L (46-116); ASPARTATE AMINOTRANSFERASE 32 U/L (15-37); BILIRUBIN,TOTAL 4.3 mg/dL (0.2-1.0); MAGNESIUM 2.4 mg/dL (1.8-2.4); PHOSPHORUS 6.2 mg/dL (2.5-4.9); TOTAL PROTEIN, SERUM 5.6 g/dL (6.4-8.2)
[2023-05-01 10:01] LABS: INR 1.45 (0.91-1.10); PARTIAL THROMBOPLASTIN TIME 28.8 SEC (24.3-34.3)
[2023-05-01 10:13] LABS: D-DIMER 8.97 mg/L(FEU (0.17-0.50)
[2023-05-01 10:54] LABS: ANISOCYTOSIS 1+; BAND % (MANUAL) 2 % (0.0-5.0); BASOPHILS % (MANUAL) 0 % (0.0-2.0); EOSINOPHILS % (MANUAL) 2 % (0-4); LYMPHOCYTES % (MANUAL) 6 % (16-48); MONOCYTES % (MANUAL) 7 % (0-11.0); NEUTROPHILS % (MANUAL) 83 (42-76); PLATELET ESTIMATE DECREASED; STOMATOCYTES 1+
[2023-05-01 15:18] LABS: HEMOGLOBIN 6.8 g/dL (11.5-14.8)
[2023-05-01] MEDS: FERROUS SULFATE (325 MG) 325 MG/TAB TABLET PO SCH (16:52)
[2023-05-02] VITALS (111 sets, daily range): BP systolic 44–130; BP diastolic 16–115; TEMP 97.8–98.4; O2SAT 91–100
[2023-05-02 04:40] LABS: BASOPHILS % (AUTO) 0.1 % (0.0-2.0); EOSINOPHILS # (AUTO) 0.1 K/uL (0.0-0.7); EOSINOPHILS % (AUTO) 0.5 % (0.0-6.0); HEMATOCRIT 26 % (33-45); HEMOGLOBIN 8.5 g/dL (11.5-14.8); LYMPHOCYTES # (AUTO) 0.5 K/uL (0.8-4.8); LYMPHOCYTES % (AUTO) 3.2 % (20.0-44.0); MEAN CORPUSCULAR HEMOGLOBIN 32 PG (26.0-33.0); MEAN CORPUSCULAR HGB CONC 33 g/dl (31.0-36.0); MEAN CORPUSCULAR VOLUME 96 fL (82-100); MONOCYTES # (AUTO) 1.1 K/uL (0.1-1.30); MONOCYTES % (AUTO) 6.7 % (2.0-12.0); NEUTROPHILS # (AUTO) 14.5 K/uL (1.8-8.9); NEUTROPHILS % (AUTO) 89.5 % (43.0-81.0); PLATELET COUNT (AUTO) 63 K/uL (150-450); RED BLOOD CELL COUNT(AUTO) 2.69 MIL/uL (4.0-5.2); RED CELL DISTRIBUTION WIDTH 18.1 % (11.5-15.0); WHITE BLOOD COUNT (AUTO) 16.2 K/uL (4.3-11.0)
[2023-05-02 04:53] LABS: INR 1.5 (0.91-1.10); PARTIAL THROMBOPLASTIN TIME 28.8 SEC (24.3-34.3); PROTHROMBIN TIME 15.5 SECS (9.2-11.1)
[2023-05-02 04:58] LABS: ALANINE AMINOTRANSFERASE 24 U/L (12-78); ALBUMIN 2.8 g/dL (3.4-5.0); ALKALINE PHOSPHATASE 95 U/L (46-116); ASPARTATE AMINOTRANSFERASE 31 U/L (15-37); BILIRUBIN,TOTAL 4.2 mg/dL (0.2-1.0); CALCIUM, SERUM 10.2 mg/dL (8.5-10.1); CARBON DIOXIDE 25 mmol/L (21-32); CHLORIDE 96 mmol/L (98-107); CREATININE 4.2 mg/dL (0.6-1.3); GLUCOSE 227 mg/dL (74-106); POTASSIUM 3.3 mmol/L (3.5-5.1); SODIUM SERUM 136 mmol/L (136-145); TOTAL PROTEIN, SERUM 4.9 g/dL (6.4-8.2); UREA NITROGEN, BLOOD 44 mg/dL (7-18)
[2023-05-02 04:59] LABS: D-DIMER 12.97 mg/L(FEU (0.17-0.50)
[2023-05-02 07:07] LABS: FOLIC ACID 5.9 ng/mL (>3.0)
[2023-05-02 08:08] LABS: CANCER AG, 15-3 29.4 U/mL (0.0-25.0); IMMUNOGLOBULIN A, SERUM 147 mg/dL (64-422); IMMUNOGLOBULIN G, SERUM 734 mg/dL (586-1602); IMMUNOGLOBULIN M, SERUM 130 mg/dL (26-217)
[2023-05-02 11:07] LABS: *ANA ANTI-CENTROMERE B AB <0.2 AI (0.0-0.9); *ANA ANTI-DNA(DS) AB, QN <1 IU/mL (0-9); *ANA ANTI-JO-1 <0.2 AI (0.0-0.9); *ANA ANTICHROMATIN ANTIBODY <0.2 AI (0.0-0.9); *ANA RNP ANTIBODIES <0.2 AI (0.0-0.9); *ANA SJOGREN'S ANTI-SS-A <0.2 AI (0.0-0.9); *ANA SJOGREN'S ANTI-SS-B <0.2 AI (0.0-0.9); *ANAANTI-SCLERODERMA-70 AB <0.2 AI (0.0-0.9); *ANASMITH AB <0.2 AI (0.0-0.9); *SPE A/G RATIO 1.7 (0.7-1.7); *SPE ALBUMIN 3.3 g/dL (2.9-4.4); *SPE ALPHA-1-GLOBULIN 0.1 g/dL (0.0-0.4); *SPE ALPHA-2-GLOBULIN 0.5 g/dL (0.4-1.0); *SPE BETA GLOBULIN 0.4 g/dL (0.7-1.3); *SPE M-SPIKE Not Observed g/dL (Not Observed); *SPE PROTEIN TOTAL 5.3 g/dL (6.0-8.5); HEPATITIS B SURFACE AB Reactive (.)
[2023-05-02 11:18] LABS: ANISOCYTOSIS 1+; BAND % (MANUAL) 2 % (0.0-5.0); BASOPHILS % (MANUAL) 0 % (0.0-2.0); EOSINOPHILS % (MANUAL) 0 % (0-4); LYMPHOCYTES % (MANUAL) 6 % (16-48); MONOCYTES % (MANUAL) 8 % (0-11.0); NEUTROPHILS % (MANUAL) 84 (42-76); OVALOCYTES 1+; PLATELET ESTIMATE DECREASED
[2023-05-02 12:07] LABS: FREE KAPPA LT CHAINS SERUM 120.7 mg/L (3.3-19.4); FREE LAMBDA LT CHAIN SERUM 75.8 mg/L (5.7-26.3); KAPPA/LAMBDA RATIO SERUM 1.59 (0.26-1.65)
[2023-05-02] MEDS: ACETAMINOPHEN 325 MG TABLET PO ONE (18:06)
[2023-05-02] MEDS: diphenhydrAMINE HCL 50 MG/ML VIAL IV ONE (18:15)
[2023-05-03] VITALS (121 sets, daily range): BP systolic 76–118; BP diastolic 27–69; TEMP 97.5–98.6; O2SAT 95–100
[2023-05-03] MEDS: PHENYLEPHRINE 10 MG/ML VIAL ONE (03:51)
[2023-05-03 04:50] LABS: BASOPHILS % (AUTO) 0.1 % (0.0-2.0); EOSINOPHILS # (AUTO) 0.1 K/uL (0.0-0.7); EOSINOPHILS % (AUTO) 0.4 % (0.0-6.0); HEMATOCRIT 26 % (33-45); HEMOGLOBIN 8.5 g/dL (11.5-14.8); LYMPHOCYTES # (AUTO) 0.6 K/uL (0.8-4.8); LYMPHOCYTES % (AUTO) 3.6 % (20.0-44.0); MEAN CORPUSCULAR HEMOGLOBIN 32 PG (26.0-33.0); MEAN CORPUSCULAR HGB CONC 33 g/dl (31.0-36.0); MEAN CORPUSCULAR VOLUME 97 fL (82-100); MONOCYTES # (AUTO) 1.3 K/uL (0.1-1.30); MONOCYTES % (AUTO) 7.8 % (2.0-12.0); NEUTROPHILS # (AUTO) 14.2 K/uL (1.8-8.9); NEUTROPHILS % (AUTO) 88.1 % (43.0-81.0); PLATELET COUNT (AUTO) 57 K/uL (150-450); RED BLOOD CELL COUNT(AUTO) 2.67 MIL/uL (4.0-5.2); RED CELL DISTRIBUTION WIDTH 18.8 % (11.5-15.0); WHITE BLOOD COUNT (AUTO) 16.1 K/uL (4.3-11.0)
[2023-05-03 05:08] LABS: CALCIUM, SERUM 8.8 mg/dL (8.5-10.1); CARBON DIOXIDE 25 mmol/L (21-32); CHLORIDE 99 mmol/L (98-107); CREATININE 3.1 mg/dL (0.6-1.3); GLUCOSE 245 mg/dL (74-106); SODIUM SERUM 137 mmol/L (136-145); UREA NITROGEN, BLOOD 28 mg/dL (7-18)
[2023-05-03 05:11] LABS: POTASSIUM 2.8 mmol/L (3.5-5.1)
[2023-05-03 05:13] LABS: ALANINE AMINOTRANSFERASE 22 U/L (12-78); ALBUMIN 2.3 g/dL (3.4-5.0); ALKALINE PHOSPHATASE 84 U/L (46-116); ASPARTATE AMINOTRANSFERASE 34 U/L (15-37); BILIRUBIN,TOTAL 5.6 mg/dL (0.2-1.0); TOTAL PROTEIN, SERUM 4.7 g/dL (6.4-8.2)
[2023-05-03 05:14] LABS: D-DIMER 12.19 mg/L(FEU (0.17-0.50); INR 1.51 (0.91-1.10); PARTIAL THROMBOPLASTIN TIME 34.7 SEC (24.3-34.3); PROTHROMBIN TIME 15.6 SECS (9.2-11.1)
[2023-05-03] MEDS: POTASSIUM CHLORIDE 20 MEQ TAB.PRT.SR PO SCH (08:45)
[2023-05-03 10:30] LABS: BASOPHILS % (MANUAL) 0 % (0.0-2.0); EOSINOPHILS % (MANUAL) 0 % (0-4); LYMPHOCYTES % (MANUAL) 5 % (16-48); MONOCYTES % (MANUAL) 9 % (0-11.0); NEUTROPHILS % (MANUAL) 85 (42-76)
[2023-05-03 10:31] LABS: ANISOCYTOSIS 1+; OVALOCYTES 1+; PLATELET ESTIMATE DECREASED
[2023-05-03] MEDS: IV NS 0.9% 500 ML IV ONE (10:47)
[2023-05-03] MEDS: POTASSIUM CL. PREMIX PERIPHER. 50 ML IV SCH (11:48)
[2023-05-03] MEDS ORDERED: VASOPRESSIN INJ 40 UNIT in IV NS 0.9% 38 ML IV PRN (12:00)
[2023-05-03] MEDS: ACETAMINOPHEN 325 MG TABLET PO ONE (13:40)
[2023-05-03] MEDS: diphenhydrAMINE HCL 50 MG/ML VIAL IV ONE (13:40)
[2023-05-03] MEDS: NOREPINEPHRINE 32 MG in IV NS 0.9% 218 ML IV PRN (14:15)
[2023-05-03] MEDS: PHENYLEPHRINE 100 MG in IV NS 0.9% 240 ML IV PRN (14:26)
[2023-05-03] MEDS: MIDODRINE HCL (5MG) 5 MG TABLET PO SCH (16:04)
[2023-05-04] VITALS (109 sets, daily range): BP systolic 54–122; BP diastolic 18–75; TEMP 97.7–98.7; O2SAT 95–100
[2023-05-04 04:16] LABS: BASOPHILS % (AUTO) 0.1 % (0.0-2.0); EOSINOPHILS # (AUTO) 0.2 K/uL (0.0-0.7); EOSINOPHILS % (AUTO) 1.1 % (0.0-6.0); HEMATOCRIT 25 % (33-45); HEMOGLOBIN 8.4 g/dL (11.5-14.8); LYMPHOCYTES # (AUTO) 0.3 K/uL (0.8-4.8); LYMPHOCYTES % (AUTO) 1.9 % (20.0-44.0); MEAN CORPUSCULAR HEMOGLOBIN 32 PG (26.0-33.0); MEAN CORPUSCULAR HGB CONC 33 g/dl (31.0-36.0); MEAN CORPUSCULAR VOLUME 97 fL (82-100); MONOCYTES # (AUTO) 0.8 K/uL (0.1-1.30); MONOCYTES % (AUTO) 4.5 % (2.0-12.0); NEUTROPHILS # (AUTO) 16.7 K/uL (1.8-8.9); NEUTROPHILS % (AUTO) 92.4 % (43.0-81.0); RED BLOOD CELL COUNT(AUTO) 2.63 MIL/uL (4.0-5.2); WHITE BLOOD COUNT (AUTO) 18.1 K/uL (4.3-11.0)
[2023-05-04 04:27] LABS: ALANINE AMINOTRANSFERASE 21 U/L (12-78); ALBUMIN 2.6 g/dL (3.4-5.0); ALKALINE PHOSPHATASE 82 U/L (46-116); ASPARTATE AMINOTRANSFERASE 31 U/L (15-37); BILIRUBIN,TOTAL 6.4 mg/dL (0.2-1.0); CALCIUM, SERUM 9.9 mg/dL (8.5-10.1); CARBON DIOXIDE 28 mmol/L (21-32); CHLORIDE 100 mmol/L (98-107); CREATININE 2.9 mg/dL (0.6-1.3); GLUCOSE 149 mg/dL (74-106); POTASSIUM 3.8 mmol/L (3.5-5.1); SODIUM SERUM 139 mmol/L (136-145); UREA NITROGEN, BLOOD 25 mg/dL (7-18)
[2023-05-04 04:31] LABS: PLATELET COUNT (AUTO) 49 K/uL (150-450)
[2023-05-04 04:53] LABS: INR 1.53 (0.91-1.10); PARTIAL THROMBOPLASTIN TIME 32.8 SEC (24.3-34.3); PROTHROMBIN TIME 15.8 SECS (9.2-11.1)
[2023-05-04 04:55] LABS: D-DIMER 10.59 mg/L(FEU (0.17-0.50)
[2023-05-04] MEDS: LACTOBACILLUS RHAMNOSUS GG 1 EACH CAP.SPRINK PO SCH (08:25)
[2023-05-04 11:18] LABS: ANISOCYTOSIS 1+; BAND % (MANUAL) 3 % (0.0-5.0); BASOPHILS % (MANUAL) 0 % (0.0-2.0); EOSINOPHILS % (MANUAL) 2 % (0-4); HYPOCHROMASIA 1+; LYMPHOCYTES % (MANUAL) 4 % (16-48); MONOCYTES % (MANUAL) 7 % (0-11.0); NEUTROPHILS % (MANUAL) 84 (42-76); OVALOCYTES 1+; PLATELET ESTIMATE DECREASED
[2023-05-04] MEDS: DAPTOMYCIN 500 MG in IV NS 0.9% 50 ML IV SCH (15:37)
[2023-05-04] MEDS: PHENYLEPHRINE 10 MG/ML VIAL ONE (21:14)
[2023-05-04] MEDS: AMIODARONE 150 MG in IV D5W 100 ML IV ONE (23:35)
[2023-05-04] MEDS: AMIODARONE 450 MG in IV D5W 241 ML IV PRN (23:53)
[2023-05-04] MEDS: AMIODARONE 150 MG/3 ML VIAL IV ONE ×2 (23:53)
[2023-05-05] VITALS (46 sets, daily range): BP systolic 38–114; BP diastolic 22–64; TEMP 97.7–98.8; O2SAT 0–100
[2023-05-05] MEDS: PHENYLEPHRINE 10 MG/ML VIAL ONE (03:46)
[2023-05-05 04:46] LABS: BASOPHILS % (AUTO) 0.1 % (0.0-2.0); EOSINOPHILS # (AUTO) 0.3 K/uL (0.0-0.7); EOSINOPHILS % (AUTO) 1.3 % (0.0-6.0); HEMATOCRIT 27 % (33-45); HEMOGLOBIN 8.9 g/dL (11.5-14.8); LYMPHOCYTES # (AUTO) 0.5 K/uL (0.8-4.8); LYMPHOCYTES % (AUTO) 2.7 % (20.0-44.0); MEAN CORPUSCULAR HEMOGLOBIN 32 PG (26.0-33.0); MEAN CORPUSCULAR HGB CONC 33 g/dl (31.0-36.0); MEAN CORPUSCULAR VOLUME 98 fL (82-100); MONOCYTES % (AUTO) 4.9 % (2.0-12.0); NEUTROPHILS # (AUTO) 17.8 K/uL (1.8-8.9); PLATELET COUNT (AUTO) 52 K/uL (150-450); RED BLOOD CELL COUNT(AUTO) 2.77 MIL/uL (4.0-5.2); RED CELL DISTRIBUTION WIDTH 19.6 % (11.5-15.0); WHITE BLOOD COUNT (AUTO) 19.6 K/uL (4.3-11.0)
[2023-05-05 05:02] LABS: CALCIUM, SERUM 10.7 mg/dL (8.5-10.1); CARBON DIOXIDE 21 mmol/L (21-32); CHLORIDE 97 mmol/L (98-107); CREATININE 3.4 mg/dL (0.6-1.3); GLUCOSE 153 mg/dL (74-106); POTASSIUM 3.8 mmol/L (3.5-5.1); SODIUM SERUM 137 mmol/L (136-145); UREA NITROGEN, BLOOD 35 mg/dL (7-18)
[2023-05-05 05:07] LABS: ALANINE AMINOTRANSFERASE 22 U/L (12-78); ALKALINE PHOSPHATASE 90 U/L (46-116); ASPARTATE AMINOTRANSFERASE 34 U/L (15-37); BILIRUBIN,TOTAL 6.8 mg/dL (0.2-1.0); TOTAL PROTEIN, SERUM 5.3 g/dL (6.4-8.2)
[2023-05-05 05:13] LABS: INR 1.58 (0.91-1.10); PARTIAL THROMBOPLASTIN TIME 35.1 SEC (24.3-34.3); PROTHROMBIN TIME 16.3 SECS (9.2-11.1)
[2023-05-05 05:15] LABS: D-DIMER 11.17 mg/L(FEU (0.17-0.50)
[2023-05-05 11:16] LABS: ANISOCYTOSIS 1+; BAND % (MANUAL) 3 % (0.0-5.0); BASOPHILS % (MANUAL) 0 % (0.0-2.0); EOSINOPHILS % (MANUAL) 3 % (0-4); LYMPHOCYTES % (MANUAL) 8 % (16-48); MONOCYTES % (MANUAL) 4 % (0-11.0); NEUTROPHILS % (MANUAL) 82 (42-76); PLATELET ESTIMATE DECREASED
[2023-05-05] MEDS: HYDROMORPHONE 1 MG/1 ML DISP.SYRIN IV PRN (12:47)
[2023-05-05] MEDS ORDERED: LORAZEPAM INJ 2 MG/ML VIAL IV PRN (13:00)
[2023-05-05] MEDS ORDERED: GLYCOPYRROLATE 0.2 MG/ML VIAL IV PRN (13:00)
[2023-05-05] MEDS ORDERED: HYDROMORPHONE 1 MG/1 ML DISP.SYRIN IV PRN (13:30)
== END 2023-05-05 18:25 | DRG 871 ==
LOC: ER 05:17 → TELE-TD 08:12 → ICU 04-26 19:50
PROVIDERS: ADMIT Nurse Practitioner Acute Care; ATTEND Internal Medicine
PROC: 02HV33Z Insertion of Infusion Device into Superior Vena Cava, Percutaneous Approach (ICD-10-PCS; principal; 2023-04-24)
PROC: B548ZZA Ultrasonography of Superior Vena Cava, Guidance (ICD-10-PCS; 2023-04-24)
PROC: 30233N1 Transfusion of Nonautologous Red Blood Cells into Peripheral Vein, Percutaneous Approach (ICD-10-PCS; 2023-04-24)
PROC: 5A1D70Z Performance of Urinary Filtration, Intermittent, Less than 6 Hours Per Day (ICD-10-PCS; 2023-04-24)
PROC: 0DBK8ZX Excision of Ascending Colon, Via Natural or Artificial Opening Endoscopic, Diagnostic (ICD-10-PCS; 2023-04-25)
PROC: 0DBK8ZZ Excision of Ascending Colon, Via Natural or Artificial Opening Endoscopic (ICD-10-PCS; 2023-04-25)
PROC: 0DBN8ZZ Excision of Sigmoid Colon, Via Natural or Artificial Opening Endoscopic (ICD-10-PCS; 2023-04-25)
PROC: 0W9B3ZZ Drainage of Left Pleural Cavity, Percutaneous Approach (ICD-10-PCS; 2023-04-27)
PROC: 30233K1 Transfusion of Nonautologous Frozen Plasma into Peripheral Vein, Percutaneous Approach (ICD-10-PCS; 2023-05-01)
PROC: 30233M1 Transfusion of Nonautologous Plasma Cryoprecipitate into Peripheral Vein, Percutaneous Approach (ICD-10-PCS; 2023-05-01)
PROC: 0W9B30Z Drainage of Left Pleural Cavity with Drainage Device, Percutaneous Approach (ICD-10-PCS; 2023-05-01)
PROC: 06HN33Z Insertion of Infusion Device into Left Femoral Vein, Percutaneous Approach (ICD-10-PCS; 2023-05-02)
PROC: B54CZZA Ultrasonography of Left Lower Extremity Veins, Guidance (ICD-10-PCS; 2023-05-02)
PROC: 06HM33Z Insertion of Infusion Device into Right Femoral Vein, Percutaneous Approach (ICD-10-PCS; 2023-05-03)
PROC: B54BZZA Ultrasonography of Right Lower Extremity Veins, Guidance (ICD-10-PCS; 2023-05-03)
DX: A41.81 Sepsis due to Enterococcus (principal); D65 Disseminated intravascular coagulation [defibrination syndrome]; I21.A1 Myocardial infarction type 2; I50.33 Acute on chronic diastolic (congestive) heart failure; N18.6 End stage renal disease; J18.9 Pneumonia, unspecified organism; J96.91 Respiratory failure, unspecified with hypoxia; K63.3 Ulcer of intestine; I13.2 Hypertensive heart and chronic kidney disease with heart failure and with stage 5 chronic kidney disease, or end stage renal disease; D62 Acute posthemorrhagic anemia; R18.8 Other ascites; N39.0 Urinary tract infection, site not specified; I85.10 Secondary esophageal varices without bleeding; E44.0 Moderate protein-calorie malnutrition; Z16.21 Resistance to vancomycin; R57.9 Shock, unspecified; J98.11 Atelectasis; D61.818 Other pancytopenia; J90 Pleural effusion, not elsewhere classified; Z51.5 Encounter for palliative care; K74.60 Unspecified cirrhosis of liver; K76.82 Hepatic encephalopathy; K64.8 Other hemorrhoids; K63.5 Polyp of colon; D63.8 Anemia in other chronic diseases classified elsewhere; E66.01 Morbid (severe) obesity due to excess calories; E78.5 Hyperlipidemia, unspecified; I48.91 Unspecified atrial fibrillation; E88.09 Other disorders of plasma-protein metabolism, not elsewhere classified; E11.22 Type 2 diabetes mellitus with diabetic chronic kidney disease; Z66 Do not resuscitate; Z85.3 Personal history of malignant neoplasm of breast; Z86.73 Personal history of transient ischemic attack (TIA), and cerebral infarction without residual deficits; Z88.0 Allergy status to penicillin; Z90.49 Acquired absence of other specified parts of digestive tract; Z90.13 Acquired absence of bilateral breasts and nipples; Z99.2 Dependence on renal dialysis; K75.81 Nonalcoholic steatohepatitis (NASH); Z79.84 Long term (current) use of oral hypoglycemic drugs; Z92.21 Personal history of antineoplastic chemotherapy; D12.2 Benign neoplasm of ascending colon
CPT/HCPCS: 36410; 36415; 36569; 36600; 71045-TC; 74018; 75989; 80048-TC; 80053-TC; 80202-TC; 82140-TC; 82248-TC; 82378; 82533; 82550-TC; 82607-TC; 82728-TC; 82784; 82962-TC; 83540-TC; 83605-TC; 83735-TC; 84100-TC; 84155; 84165; 84443-TC; 84484-TC; 85025-TC; 85027-TC; 85378-TC; 85385-TC; 85396; 85610-TC; 85730-TC; 86225; 86235; 86300; 86334; 86431-TC; 86706; 86803; 86850-TC; 87040-TC; 87186-TC; 87340; 88305-TC; 89051-TC; 90935-TC; 94762-TC; 94799-TC; A4216; A4223; A6403; C9113; G0378; J0282; J0692; J0878; J1170; J1200; J1815; J1956; J2020; J2270; J2354; J2405; J2704; J2930; J3370; J3430; J3480; J3490; J7030; J7040; J7042; J7050; J7060; P9012; P9016; P9017; P9047